=== PATIENT | male | born 1970 | race Caucasian/White ===

== ENCOUNTER → 2017-07-17 | Outpatient (CLI) | payer MEDICARE, OTHER ==
[2015-11-07 19:05] VITALS: BP 116/77
[~2017-07-17] MED LIST: ARIP5TAB13 PO; OXYC30TA PO; OXYC80TA16 PO; TAMS0.4C97 PO
[2017-07-17 15:49] LABS: ALBUMIN 3.8 g/dL (3.4-5.0); ALBUMIN/GLOBULIN RATIO 1.1 (1.0-1.7); CALCIUM 8.9 mg/dL (8.5-10.1); CREATININE 1.2 mg/dL (0.7-1.3); GFR 64.6; POTASSIUM 4.2 mmol/L (3.5-5.1); TOTAL BILIRUBIN 0.6 mg/dL (0.2-1.0); TOTAL PROTEIN 7.2 g/dL (6.4-8.2)
[2017-07-18 11:28] LABS: THYROID STIM HORMONE (TSH) 1.941 uIU/mL (0.358-3.740)
== END | disposition home or self-care (01) ==
LOC: LAB 15:02
PROVIDERS: ATTEND Family Medicine
DX: J44.9 Chronic obstructive pulmonary disease, unspecified (principal); E78.00 Pure hypercholesterolemia, unspecified; F33.1 Major depressive disorder, recurrent, moderate
CPT/HCPCS: 36415; 80053; 80061; 84443

== ENCOUNTER 2017-10-06 18:29 | Emergency (ER) | payer MEDICARE, OTHER ==
[~2017-10-06] VITALS: Ht 170.2 cm; Wt 72.6 kg
[2017-10-06 18:50] VITALS: BP 134/69
[2017-10-06] MEDS ORDERED: MORPHINE SULFATE 4 MG/ML DISP.SYRIN. IM ONE (19:30)
--- NOTE | 2017-10-06 19:30 | PHYS DOC ---
Past History Past Medical History: Anxiety, Depression, Kidney Stones, Other Additional Past Medical Histor: chronic pain Past Surgical History: Cholecystectomy, Other Smoking: Cigarettes, Greater than 1 pack/day Alcohol Use: None Drug Use: None Adult General Chief Complaint Chief Complaint: BACK PAIN OR INJURY [facility] HPI 47-year-old male patient chronic back and neck and shoulder pain on OxyContin 80 mg and OxyContin IR 30 mg for breakthrough pain since 1998 states he worked on his car 4 days ago and his pain getting worse but he ran out of his OxyContin IR and only had oxycodone 80 mg that does not helping for his breakthrough pain. Patient complaining of increasing pain in his left side of neck and left shoulder and back without neurovascular deficit, fever and chills , urinary and bowel incontinence, nausea and vomiting. Patient rated his pain 8/ 10 and states the pain getting worse with movement. Patient states he has appointment with his physician on October 12 and needs more pain medication. Review of Systems Review of Systems Constitutional: Denies fever or chills [] Eyes: Denies change in visual acuity, redness, or eye pain [] HENT: Denies nasal congestion or sore throat [] Respiratory: Denies cough or shortness of breath [] Cardiovascular: No additional information not addressed in HPI [] GI: Denies abdominal pain, nausea, vomiting, bloody stools or diarrhea [] : Denies dysuria or hematuria [] Musculoskeletal: Reports back pain and neck pain or joint pain Integument: Denies rash or skin lesions [] Neurologic: Denies headache, focal weakness or sensory changes [] Endocrine: Denies polyuria or polydipsia [] All other systems were reviewed and found to be within normal limits, except as documented in this note. Allergies Allergies Allergies Coded Allergies Type Severity Reaction Last Updated Verified No Known Drug Allergies 02/20/14 No Physical Exam Physical Exam Constitutional: Well nourished, mild distress, non-toxic appearance. [] HENT: Normocephalic, atraumatic, bilateral external ears normal, oropharynx moist, no oral exudates, nose normal. [] Eyes: PERRLA, EOMI, conjunctiva normal, no discharge. [] Neck: Normal range of motion, no tenderness, supple, no stridor. [] Cardiovascular:Heart rate regular rhythm, no murmur [] Lungs & Thorax: Bilateral breath sounds clear to auscultation [] Abdomen: Bowel sounds normal, soft, no tenderness, no masses, no pulsatile masses. [] Skin: Warm, dry, no erythema, no rash. [] Back: No tenderness, no CVA tenderness, no midline tenderness, limited range of motion secondary to pain. [] Extremities: No tenderness, no cyanosis, no clubbing, ROM intact, no edema. [] Neurologic: Alert and oriented X 3, normal motor function, normal sensory function, no focal deficits noted. [] Psychologic: Affect normal, judgement normal, mood normal. [] Current Patient Data Vital Signs Vital Signs Date Time Temp Pulse Resp B/P (MAP) Pulse Ox O2 Delivery O2 Flow Rate FiO2 10/06/17 18:50 97.9 102 18 97 Room Air EKG EKG [] Radiology/Procedures Radiology/Procedures [] Course & Med Decision Making Course & Med Decision Making Evaluation of patient in ER showed 47-year-old male patient with history of chronic back pain presented to ER for refill of pain medication. Patient informed that he needs to follow up with his primary care physician for refill of OxyContin. Prescription for muscle relaxant was given. Patient had 1 dose of morphine in ER and his pain improved. Dragon Disclaimer Dragon Disclaimer This electronic medical record was generated, in whole or in part, using a voice recognition dictation system. Departure Departure: Impression: Primary Impression: Acute exacerbation of chronic low back pain Additional Impressions: Tobacco abuse Tobacco abuse counseling Encounter for medication refill Disposition: HOME, SELF-CARE (At 1935) Condition: STABLE Referrals: DAYAMI DANIELS (PCP) Patient Instructions: Back Pain, Adult, Chronic Pain Management Additional Instructions: Follow-up with your physician for chronic back pain management and refill of pain medication Scripts Cyclobenzaprine Hcl (CYCLOBENZAPRINE HCL) 10 Mg Tablet 1 TAB PO TID, #30 TAB Prov: MARY ULLOA MD 10/06/17 Problem Qualifiers MARY ULLOA MD Oct 06, 2017 19:30
[2017-10-06] MEDS ORDERED: CYCL-331 PO (19:38)
== END 2017-10-06 19:59 | disposition home or self-care (01) ==
LOC: ER 18:29
DX: G89.29 Other chronic pain (principal); Z76.0 Encounter for issue of repeat prescription; M54.5 Low back pain; M54.2 Cervicalgia; M25.512 Pain in left shoulder; F17.210 Nicotine dependence, cigarettes, uncomplicated; Z71.6 Tobacco abuse counseling; Z87.442 Personal history of urinary calculi
CPT/HCPCS: 96372; 99283; J2270

== ENCOUNTER → 2018-06-29 | Outpatient (CLI) | payer MEDICARE, OTHER ==
[~2018-06-29] MED LIST changes: +CYCL-331 PO
[2018-06-29 14:37] LABS: BASO # 0.1 x10^3/uL (0.0-0.2); BASO % 1 % (0-3); EOS # 0.2 x10^3/uL (0.0-0.7); EOS % 2 % (0-3); HEMATOCRIT 50.8 % (39.0-53.0); HEMOGLOBIN 17.3 g/dL (13.0-17.5); LYMPH % 36 % (24-48); MEAN CORPUSCULAR HEMOGLOBIN 32 pg (25-35); MEAN CORPUSCULAR HGB CONC 34 g/dL (31-37); MEAN CORPUSCULAR VOLUME 95 fL (79-100); MONO # 0.6 x10^3/uL (0.0-1.1); MONO % 7 % (0-9); NEUT # 4.5 x10^3uL (1.8-7.7); NEUT % 54 % (31-73); PLATELET COUNT 248 x10^3/uL (140-400); RED BLOOD COUNT 5.33 x10^6/uL (4.30-5.70); RED CELL DISTRIBUTION WIDTH 14.5 % (11.5-14.5); WHITE BLOOD COUNT 8.4 x10^3/uL (4.0-11.0)
[2018-06-29 14:47] LABS: ALBUMIN 3.5 g/dL (3.4-5.0); ALBUMIN/GLOBULIN RATIO 0.9 (1.0-1.7); CREATININE 1.3 mg/dL (0.7-1.3); GFR 58.7; POTASSIUM 4.3 mmol/L (3.5-5.1); TOTAL BILIRUBIN 0.4 mg/dL (0.2-1.0); TOTAL PROTEIN 7.2 g/dL (6.4-8.2)
== END | disposition home or self-care (01) ==
LOC: LAB 13:51
PROVIDERS: ATTEND Family Medicine
DX: Z12.5 Encounter for screening for malignant neoplasm of prostate (principal); N40.1 Benign prostatic hyperplasia with lower urinary tract symptoms; E78.00 Pure hypercholesterolemia, unspecified; J44.9 Chronic obstructive pulmonary disease, unspecified
CPT/HCPCS: 36415; 80053; 80061; 85025; G0103; 84153

== ENCOUNTER → 2019-11-22 | Outpatient (CLI) | payer MEDICARE, MEDICAID ==
[2019-11-22 11:35] LABS: BASO # 0.1 x10^3/uL (0.0-0.2); BASO % 1 % (0-3); EOS # 0.2 x10^3/uL (0.0-0.7); EOS % 3 % (0-3); HEMOGLOBIN 17.6 g/dL (13.0-17.5); LYMPH # 2.3 x10^3/uL (1.0-4.8); LYMPH % 36 % (24-48); MEAN CORPUSCULAR HEMOGLOBIN 35 pg (25-35); MEAN CORPUSCULAR HGB CONC 34 g/dL (31-37); MEAN CORPUSCULAR VOLUME 104 fL (79-100); MONO # 0.4 x10^3/uL (0.0-1.1); MONO % 7 % (0-9); NEUT # 3.5 x10^3uL (1.8-7.7); NEUT % 53 % (31-73); PLATELET COUNT 202 x10^3/uL (140-400); RED BLOOD COUNT 4.99 x10^6/uL (4.30-5.70); RED CELL DISTRIBUTION WIDTH 14.7 % (11.5-14.5); WHITE BLOOD COUNT 6.5 x10^3/uL (4.0-11.0)
[2019-11-22 11:40] LABS: ALBUMIN 3.4 g/dL (3.4-5.0); ALK PHOS 122 U/L (46-116); ALT (SGPT) 10 U/L (16-63); ANION GAP 9 (6-14); BLOOD UREA NITROGEN 8 mg/dL (8-26); BUN/CREATININE RATIO 7 (6-20); CALCIUM 8.4 mg/dL (8.5-10.1); CARBON DIOXIDE 27 mmol/L (21-32); CHLORIDE 103 mmol/L (98-107); CREATININE 1.1 mg/dL (0.7-1.3); GFR 70.9; POTASSIUM 3.9 mmol/L (3.5-5.1); SODIUM 139 mmol/L (136-145); TOTAL BILIRUBIN 0.3 mg/dL (0.2-1.0); TOTAL PROTEIN 6.9 g/dL (6.4-8.2)
[2019-11-22 12:00] LABS: AST (SGOT) < 5 U/L (15-37)
[2019-11-22 12:02] LABS: GLUCOSE 121 mg/dL (70-99)
== END | disposition home or self-care (01) ==
LOC: LAB 10:44
PROVIDERS: ATTEND Family Medicine
DX: Z12.5 Encounter for screening for malignant neoplasm of prostate (principal); Z13.1 Encounter for screening for diabetes mellitus; J44.9 Chronic obstructive pulmonary disease, unspecified; G89.4 Chronic pain syndrome; F41.1 Generalized anxiety disorder; G47.01 Insomnia due to medical condition; F33.1 Major depressive disorder, recurrent, moderate; E78.00 Pure hypercholesterolemia, unspecified; M54.16 Radiculopathy, lumbar region; M75.00 Adhesive capsulitis of unspecified shoulder; M50.30 Other cervical disc degeneration, unspecified cervical region; Z68.28 Body mass index [BMI] 28.0-28.9, adult
CPT/HCPCS: 36415; 80053; 80061; 85025; G0103

== ENCOUNTER 2020-03-12 13:36 | Emergency (ER) | payer MEDICARE, MEDICAID ==
[~2020-03-12 13:36] MED LIST changes: -OXYC30TA PO; +OXYC30TA3 PO
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
== END 2020-03-12 14:21 | disposition home or self-care (01) ==
LOC: ER 13:36
DX: S29.011A Strain of muscle and tendon of front wall of thorax, initial encounter (principal); G89.29 Other chronic pain; F17.210 Nicotine dependence, cigarettes, uncomplicated; Z87.442 Personal history of urinary calculi; Y04.0XXA Assault by unarmed brawl or fight, initial encounter; Y93.89 Activity, other specified; Y92.89 Other specified places as the place of occurrence of the external cause; Y99.8 Other external cause status
CPT/HCPCS: 73030; 99283

== ENCOUNTER → 2020-04-05 | Outpatient (CLI) | payer MEDICARE, MEDICAID ==
[2020-04-06 00:06] LABS: HEMOGLOBIN A1C 5.6 % (4.8-5.6)
== END | disposition home or self-care (01) ==
LOC: LAB 15:39
PROVIDERS: ATTEND Family Medicine
DX: Z13.1 Encounter for screening for diabetes mellitus (principal); R73.01 Impaired fasting glucose; Z79.899 Other long term (current) drug therapy
CPT/HCPCS: 36415; 83036

== ENCOUNTER 2020-08-06 09:50 | Emergency (ER) | payer MEDICARE, MEDICAID ==
[~2020-08-06] VITALS: Ht 170.2 cm; Wt 72.5 kg
[2020-08-06] MEDS ORDERED: MIDAZOLAM HCL PF 5 MG/5 ML VIAL. IM ONE (10:00)
[2020-08-06] MEDS ORDERED: HALOPERIDOL LACT 5 MG/ML VIAL. IM ONE (10:00)
[2020-08-06] MEDS ORDERED: IV NORMAL SALINE 1,000ML 1,000 ML IV ONE ×2 (10:45→12:00)
[2020-08-06] MEDS ORDERED: IOHEXOL 300 MG/ML 75 ML VIAL. ONE (10:54)
--- NOTE | 2020-08-06 10:57 | PHYS DOC ---
Past History Past Medical History: Anxiety, Depression, Kidney Stones, Other Additional Past Medical Histor: chronic pain Past Surgical History: Cholecystectomy, Other Smoking: Cigarettes, Greater than 1 pack/day Alcohol Use: None Drug Use: None Adult General Chief Complaint Chief Complaint: SEIZURE HPI HPI Patient is a 50-year-old male who presents for potential seizure. Patient was at home and per family members who did not accompany patient to ER, they reported seizure-like activity which was self-limiting in nature. EMS was subsequently called and delivered patient to our ER for evaluation in a postictal state. It is unknown whether patient had any preceding symptoms. Patient hemodynamically stable but in confused postictal state and combative on arrival. Nothing else is known regarding patient's past medical history and/or medication list at this time Review of Systems Review of Systems Initial ROS unobtainable due to patient condition Current Medications Current Medications Current Medications Medications (Trade) Dose Ordered Sig/Mitzy Start Time Stop Time Status Last Admin Dose Admin Haloperidol Lactate (Haldol) 10 mg 1X ONCE 08/06/20 10:00 08/06/20 10:02 DC 08/06/20 10:07 10 MG Iohexol (Omnipaque 300 Mg/ml) 75 ml STK-MED ONCE 08/06/20 10:54 08/06/20 10:54 DC Midazolam HCl (Versed) 5 mg 1X ONCE 08/06/20 10:00 08/06/20 10:02 DC Sodium Chloride 1,000 ml @ 1,000 mls/hr 1X ONCE 08/06/20 10:45 08/06/20 11:44 08/06/20 10:39 1,000 MLS/HR Allergies Allergies Allergies Coded Allergies Type Severity Reaction Last Updated Verified No Known Drug Allergies 02/20/14 No Physical Exam Physical Exam Constitutional: Poor hygiene, unkept, obese, arrived in obvious distress in a confused what appears to be post ictal state HENT: Normocephalic, atraumatic, bilateral external ears normal, oropharynx moist, no oral exudates, nose normal. Eyes: PERRLA, EOMI, conjunctiva normal, no discharge. Neck: Normal range of motion, no tenderness, supple, no stridor. No meningeal signs, negative Brudzinski and Kernig Cardiovascular: Heart rate tachycardic, sinus rhythm, no murmurs rubs or gallops Lungs & Thorax: Bilateral breath sounds clear to auscultation Abdomen: Bowel sounds normal, soft, no tenderness, no masses, no pulsatile masses. Nonsurgical abdomen, no peritoneal signs Skin: Warm, dry, no erythema, no rash. Back: No tenderness, no CVA tenderness. Extremities: No tenderness, no cyanosis, no clubbing, ROM intact, no edema. Neurologic: Alert and oriented X 3, grossly normal motor & sensory function, no focal deficits noted. Psychologic: Unable to fully assess given patient's presenting state and subsequently leaving AGAINST MEDICAL ADVICE prior to complete examination Current Patient Data Vital Signs Vital Signs Date Time Temp Pulse Resp B/P (MAP) Pulse Ox O2 Delivery O2 Flow Rate FiO2 08/06/20 12:19 67 20 153/82 (105) 97 Room Air 08/06/20 09:55 98.3 Lab Results Laboratory Tests Test 08/06/20 10:18 08/06/20 10:30 08/06/20 13:00 Glucose (Fingerstick) 201 mg/dL (70-99) White Blood Count 8.2 x10^3/uL (4.0-11.0) Red Blood Count 5.32 x10^6/uL (4.30-5.70) Hemoglobin 18.2 g/dL (13.0-17.5) Hematocrit 55.1 % (39.0-53.0) Mean Corpuscular Volume 104 fL (79-100) Mean Corpuscular Hemoglobin 34 pg (25-35) Mean Corpuscular Hemoglobin Concent 33 g/dL (31-37) Red Cell Distribution Width 13.7 % (11.5-14.5) Platelet Count 190 x10^3/uL (140-400) Neutrophils (%) (Auto) 86 % (31-73) Lymphocytes (%) (Auto) 9 % (24-48) Monocytes (%) (Auto) 5 % (0-9) Eosinophils (%) (Auto) 0 % (0-3) Basophils (%) (Auto) 0 % (0-3) Neutrophils # (Auto) 7.0 x10^3uL (1.8-7.7) Lymphocytes # (Auto) 0.8 x10^3/uL (1.0-4.8) Monocytes # (Auto) 0.4 x10^3/uL (0.0-1.1) Eosinophils # (Auto) 0.0 x10^3/uL (0.0-0.7) Basophils # (Auto) 0.0 x10^3/uL (0.0-0.2) Sodium Level 135 mmol/L (136-145) Potassium Level 3.4 mmol/L (3.5-5.1) Chloride Level 97 mmol/L (98-107) Carbon Dioxide Level 21 mmol/L (21-32) Anion Gap 17 (6-14) Blood Urea Nitrogen 12 mg/dL (8-26) Creatinine 1.5 mg/dL (0.7-1.3) Estimated GFR (Cockcroft-Gault) 49.3 BUN/Creatinine Ratio 8 (6-20) Glucose Level 177 mg/dL (70-99) Lactic Acid Level 7.1 mmol/L (0.4-2.0) Calcium Level 9.5 mg/dL (8.5-10.1) Total Bilirubin 0.8 mg/dL (0.2-1.0) Aspartate Amino Transf (AST/SGOT) 24 U/L (15-37) Alanine Aminotransferase (ALT/SGPT) 24 U/L (16-63) Alkaline Phosphatase 123 U/L (46-116) Creatine Kinase 272 U/L (39-308) Troponin I Quantitative < 0.017 ng/mL (0-0.055) Total Protein 7.5 g/dL (6.4-8.2) Albumin 3.8 g/dL (3.4-5.0) Albumin/Globulin Ratio 1.0 (1.0-1.7) Urine Collection Type Unknown Urine Color Venita Urine Clarity Clear Urine pH 6.5 Urine Specific [place] 1.015 Urine Protein Trace (NEG-TRACE) Urine Glucose (UA) Neg mg/dL (NEG) Urine Ketones (Stick) 15 mg/dL (NEG) Urine Blood Mod (NEG) Urine Nitrite Neg (NEG) Urine Bilirubin Neg (NEG) Urine Urobilinogen Dipstick 2.0 mg/dL (0.2 mg/dL) Urine Leukocyte Esterase Neg (NEG) Urine RBC >40 /HPF (0-2) Urine WBC 1-4 /HPF (0-4) Urine Squamous Epithelial Cells Occ /LPF Urine Bacteria 0 /HPF (0-FEW) Urine Opiates Screen Pos (NEG) Urine Methadone Screen Neg (NEG) Urine Barbiturates Neg (NEG) Urine Phencyclidine Screen Neg (NEG) Urine Amphetamine/Methamphetamine Neg (NEG) Urine Benzodiazepines Screen Pos (NEG) Urine Cocaine Screen Neg (NEG) Urine Cannabinoids Screen Pos (NEG) Urine Ethyl Alcohol Neg (NEG) EKG EKG EKG ordered and interpreted by myself at 1047 hrs. as sinus rhythm at 73 bpm, unremarkable intervals, right axis deviation, incomplete right bundle branch block and septal anterior T wave inversions in leads V1, V2, V3, and V4. Radiology/Procedures Radiology/Procedures PROCEDURE: CHEST AP ONLY EXAM: CHEST 1 VIEW History: Altered mental status COMPARISON: 02/20/2014. TECHNIQUE: Single portable radiograph of the chest FINDINGS: Mild cardiomegaly. The lungs are clear bilaterally. The costophrenic sulci are clear and well demarcated. Small calcified granuloma left lung base. IMPRESSION: No radiographic evidence of an acute cardiopulmonary process. Electronically signed by: Jason Pope MD (08/06/2020 11:18 AM) [id number] PROCEDURE: CT HEAD WO CONTRAST PQRS Compliance Statement: One or more of the following individualized dose reduction techniques were utilized for this examination: 1. Automated exposure control 2. Adjustment of the mA and/or kV according to patient size 3. Use of iterative reconstruction technique CT head without contrast 08/06/2020 10:34 AM INDICATION: Seizure COMPARISON: None available TECHNIQUE: Multiple axial CT images of the head were obtained from skull base through the vertex without intravenous contrast. FINDINGS: Head: Ventricles, sulci and basal cisterns are within normal limits. There is no hydrocephalus. Schreiber-white matter differentiation is normal. There is no acute intracranial hemorrhage. There is no mass, mass effect or midline shift. Posterior fossa is normal in appearance. Visualized portions of the orbits are normal. Paranasal sinuses are well aerated. Mastoid air cells are well aerated. Scalp and calvaria are normal. IMPRESSION: No acute intracranial hemorrhage. Electronically signed by: Sarai Ventura MD (08/06/2020 11:05 AM) [id number] PROCEDURE: CT ABD PELV W/ IV CONTRST ONLY CT of the abdomen and pelvis with IV contrast. 08/06/2020 INDICATION: Abdominal pain. COMPARISON STUDY: CT of the abdomen and pelvis without contrast March 28, 2014 TECHNIQUE: Multidetector CT imaging of the abdomen and pelvis was obtained following the administration of IV contrast only. Oral contrast was not administered. FINDINGS: Visualized lung bases demonstrate no acute abnormality. Prior cholecystectomy noted. The liver, adrenal glands, spleen, and pancreas demonstrate no acute normality. Excretion of contrast from the kidneys is noted. This could obscure small nonobstructing stones. No evidence of hydronephrosis or ureteral stone is seen. There are small renal hypodensities, too small to characterize with attenuation characteristics suggestive of small cysts. There is no bowel obstruction. No evidence of acute inflammatory change involving visualized bowel is identified. Bladder is unremarkable. No free fluid or free air seen in the abdomen or pelvis. No acute osseous changes are identified. The appendix is mildly thickened measuring up to 8 mm in diameter. The appendiceal lumen appears to contain calcific densities likely multiple small appendicoliths. Similar findings noted on prior study. The appearance is chronic. No surrounding inflammatory changes identified. IMPRESSION 1. No evidence of acute intraluminal abnormality 2. No hydronephrosis, or evidence of acute obstructive uropathy CT DOSING PQRS STATEMENT: One or more of the following individualized dose reduction techniques were utilized for this examination: 1. Automated exposure control 2. Adjustment of the mA and/or kV according to patient size 3. Use of iterative reconstruction technique Electronically signed by: Matthew Arciniega MD (08/06/2020 11:37 AM) [id number] Heart Score HEART Score for Chest Pain: HEART Score for Chest Pain Response (Comments) Value History Slighlty/Non-Suspicious 0 ECG Normal 0 Age < 45 0 Risk Factors 1 or 2 Risk Factors 1 Troponin < Normal Limit 0 Total 1 Risk Factors: Risk Factors: DM, Current or recent (<one month) smoker, HTN, HLP, family history of CAD, obesity. Risk Scores: Risk Factors: DM, Current or recent (<one month) smoker, HTN, HLP, family history of CAD, obesity. Course & Med Decision Making Course & Med Decision Making Pertinent Labs and Imaging studies reviewed. (See chart for details) Patient initially arrived in aggressive post ictal state and decision was made to administer 10 mg IV of Haldol for acute aggression. This totally resolved patient's condition Patient was monitored, further history obtained from patient, better physical exam obtained, and subsequent diagnostic work-up obtained Nonetheless, before completion of entirety of work-up, patient voiced wanting to leave AGAINST MEDICAL ADVICE I have reviewed the relevant issues with the patient. They are aware of the suspected diagnosis suggested by limited medical exam regarding patient's suspect seizure-like activity The patient is AAOx3 at time of voicing wanting to leave, exhibits no alcohol or drug intoxication to a point that would impair ability to delineate a choice, and demonstrates all four delgado elements of capacity to make decisions regarding the medical care offered. - Patient able to Communicate their treatment choice - Patient able to Understand and recall information - Patient able to Appreciate and process probable outcomes of their condition - Patient able to Reason through communication their rationalization about their choice of care options, regardless of whether I as their provider agree with their rationale. Risks and Recommendations: The risks of refusing recommended care that were disclosed and acknowledged by the patient include loss of current lifestyle, permanent mental impairment, and . The recommended medical care being refused has been discussed with the patient and is to stay for continued monitoring, workup, and possible treatment. Discharge Care: The patient understands they are welcome to return to the hospital at any time to receive the recommended care or any other care at any time, regardless of their ability to pay for such care. Discharge instructions were provided to the patient. Dragon Disclaimer Dragon Disclaimer This electronic medical record was generated, in whole or in part, using a voice recognition dictation system. Departure Departure: Impression: Primary Impression: Left against medical advice Additional Impression: Seizure Disposition: 07 AMA/ELOPED/LWBS Condition: STABLE Referrals: DAYAMI DANIELS (PCP) Additional Instructions: You have been evaluated in the Emergency Department today. You are refusing further testing, imaging, and further admission and choosing to leave against medical advice. You were advised of your risks of leaving and understand that permanent harm, or even , can occur from failing to follow the recommendations of the physician. Please call your primary care physician immediately after ER departure to schedule outpatient follow-up JANNETTE for repeat evaluation since you left prior to complete evaluation in our ER today Return to the Emergency Department immediately if you experience worsening or uncontrolled pain, persistent fevers, recurrent vomiting, blood in vomit, blood in stool, dark tarry stool, chest pain, shortness of breath, or for any other concerning symptoms. Problem Qualifiers TAWNYA MANCIA DO Aug 06, 2020 10:57
[2020-08-06] MEDS ORDERED: IOHEXOL 300 MG/ML 75 ML VIAL. IV ONE (11:00)
[2020-08-06 11:06] LABS: BASO % 0 % (0-3); EOS % 0 % (0-3); HEMATOCRIT 55.1 % (39.0-53.0); HEMOGLOBIN 18.2 g/dL (13.0-17.5); LYMPH # 0.8 x10^3/uL (1.0-4.8); LYMPH % 9 % (24-48); MEAN CORPUSCULAR HEMOGLOBIN 34 pg (25-35); MEAN CORPUSCULAR HGB CONC 33 g/dL (31-37); MEAN CORPUSCULAR VOLUME 104 fL (79-100); MONO # 0.4 x10^3/uL (0.0-1.1); MONO % 5 % (0-9); NEUT % 86 % (31-73); PLATELET COUNT 190 x10^3/uL (140-400); RED BLOOD COUNT 5.32 x10^6/uL (4.30-5.70); RED CELL DISTRIBUTION WIDTH 13.7 % (11.5-14.5); WHITE BLOOD COUNT 8.2 x10^3/uL (4.0-11.0)
--- NOTE | 2020-08-06 11:08 | RAD ---
RS Compliance Statement: One or more of the following individualized dose reduction techniques were utilized for this examination: 1. Automated exposure control 2. Adjustment of the mA and/or kV according to patient size 3. Use of iterative reconstruction technique CT head without contrast 08/06/2020 10:34 AM INDICATION: Seizure COMPARISON: None available TECHNIQUE: Multiple axial CT images of the head were obtained from skull base through the vertex without intravenous contrast. FINDINGS: Head: Ventricles, sulci and basal cisterns are within normal limits. There is no hydrocephalus. Schreiber-white matter differentiation is normal. There is no acute intracranial hemorrhage. There is no mass, mass effect or midline shift. Posterior fossa is normal in appearance. Visualized portions of the orbits are normal. Paranasal sinuses are well aerated. Mastoid air cells are well aerated. Scalp and calvaria are normal. IMPRESSION: No acute intracranial hemorrhage. Electronically signed by: Sarai Ventura MD (08/06/2020 11:05 AM) [id number]
[2020-08-06 11:19] LABS: CALCIUM 9.5 mg/dL (8.5-10.1); CREATININE 1.5 mg/dL (0.7-1.3); GFR 49.3; POTASSIUM 3.4 mmol/L (3.5-5.1)
--- NOTE | 2020-08-06 11:21 | RAD ---
EXAM: CHEST 1 VIEW History: Altered mental status COMPARISON: 02/20/2014. TECHNIQUE: Single portable radiograph of the chest FINDINGS: Mild cardiomegaly. The lungs are clear bilaterally. The costophrenic sulci are clear and well demarcated. Small calcified granuloma left lung base. IMPRESSION: No radiographic evidence of an acute cardiopulmonary process. Electronically signed by: Jason Pope MD (08/06/2020 11:18 AM) [id number]
[2020-08-06 11:26] LABS: ALBUMIN 3.8 g/dL (3.4-5.0); TOTAL BILIRUBIN 0.8 mg/dL (0.2-1.0); TOTAL PROTEIN 7.5 g/dL (6.4-8.2)
--- NOTE | 2020-08-06 11:39 | RAD ---
CT of the abdomen and pelvis with IV contrast. 08/06/2020 INDICATION: Abdominal pain. COMPARISON STUDY: CT of the abdomen and pelvis without contrast March 28, 2014 TECHNIQUE: Multidetector CT imaging of the abdomen and pelvis was obtained following the administration of IV contrast only. Oral contrast was not administered. FINDINGS: Visualized lung bases demonstrate no acute abnormality. Prior cholecystectomy noted. The liver, adrenal glands, spleen, and pancreas demonstrate no acute normality. Excretion of contrast from the kidneys is noted. This could obscure small nonobstructing stones. No evidence of hydronephrosis or ureteral stone is seen. There are small renal hypodensities, too small to characterize with attenuation characteristics suggestive of small cysts. There is no bowel obstruction. No evidence of acute inflammatory change involving visualized bowel is identified. Bladder is unremarkable. No free fluid or free air seen in the abdomen or pelvis. No acute osseous changes are identified. The appendix is mildly thickened measuring up to 8 mm in diameter. The appendiceal lumen appears to contain calcific densities likely multiple small appendicoliths. Similar findings noted on prior study. The appearance is chronic. No surrounding inflammatory changes identified. IMPRESSION 1. No evidence of acute intraluminal abnormality 2. No hydronephrosis, or evidence of acute obstructive uropathy CT DOSING PQRS STATEMENT: One or more of the following individualized dose reduction techniques were utilized for this examination: 1. Automated exposure control 2. Adjustment of the mA and/or kV according to patient size 3. Use of iterative reconstruction technique Electronically signed by: Matthew Arciniega MD (08/06/2020 11:37 AM) [id number]
[2020-08-06 12:19] VITALS: BP 153/82
[2020-08-06 13:19] LABS: AMPHETAMINE/METHAMPHETAMINE NEG (NEG); BARBITURATES NEG (NEG); BENZODIAZEPINES POS (NEG); CANNABINOIDS POS (NEG); COCAINE NEG (NEG); METHADONE NEG (NEG); OPIATES POS (NEG); PHENCYCLIDINE NEG (NEG)
[2020-08-06 13:24] LABS: BILIRUBIN,URINE NEG (NEG); CLARITY,URINE CLEAR; COLOR,URINE AMBER; GLUCOSE,URINE NEG (NEG)
[2020-08-06 13:25] LABS: BACTERIA,URINE 0 /HPF (0-FEW); NITRITE,URINE NEG (NEG); RBC,URINE >40 /HPF (0-2); SQUAMOUS EPITHELIAL CELL,UR OCC /LPF
--- NOTE | 2020-08-07 06:38 | EKG ---
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
== END 2020-08-06 13:55 | disposition left against medical advice (07) ==
LOC: ER 09:50
DX: R56.9 Unspecified convulsions (principal); R41.0 Disorientation, unspecified; F41.9 Anxiety disorder, unspecified; F32.9 Major depressive disorder, single episode, unspecified; G89.29 Other chronic pain; F17.210 Nicotine dependence, cigarettes, uncomplicated; Z87.442 Personal history of urinary calculi
CPT/HCPCS: 36415; 70450; 71045; 74177; 80053; 80307; 81001; 82550; 82947; 83605; 84484; 85025; 87040; 93005; 96360; 96361; 96372; 99285; J1630; J7030; Q9967

== ENCOUNTER 2020-08-06 22:01 | Inpatient (IN) | payer MEDICARE, MEDICAID ==
[~2020-08-06] VITALS: Ht 170.2 cm; Wt 72.5 kg
--- NOTE | 2020-08-06 22:06 | PHYS DOC ---
Past History Past Medical History: Anxiety, Kidney Stones, Seizure, Other Additional Past Medical Histor: CHRONIC NECK PAIN Past Surgical History: Cholecystectomy, Other Additional Past Surgical Histo: UNKNOWN SURGICAL HX Past Surgical History This cervical laminectomy and fusion C5-C6 Smoking: Cigarettes, Greater than 1 pack/day Alcohol Use: None Drug Use: None General Adult HPI: HPI: " I don't know.. .. I don't know.. .. I ... Patient is a 50 year old male who presents with hx of tonic clonic like activiity. Seen this morning with similar presentation. Pt. left AMA. Pt. returns with periodic tonic clonic like activity. Patient initially refusing labs meds or evaluation. Eventually pt agreed to labs and work up. Pt. per hx has been on Xanax 4 times a day chronically for anxiety. Patient ran out of meds approximately 3 days ago and since that time has developed mental status changes which appear to be seizure-like episodes and absence / postictal phases. Patient was seen earlier this date but left AMA. Pt. normally follows with . Review of Systems: Review of Systems: Very poor historian due to frequent tonic-clonic episodes of periseizures with post ictal episodes Family History: Family History: Not currently available Current Medications: Current Meds: See nursing for home meds Allergies: Allergies: Allergies Coded Allergies Type Severity Reaction Last Updated Verified No Known Drug Allergies 02/20/14 No Physical Exam: PE: Constitutional: in acute distress, tonic-clonic muscle spasms which appear to be short seizures HENT: Normocephalic, atraumatic, bilateral external ears normal, oropharynx moist, no oral exudates, nose normal. [] Eyes: PERRLA, EOMI, conjunctiva injected, no discharge. During seizures he is eyes look downwards and fixed to the right Neck: Normal range of motion, no tenderness, supple, no stridor. Old surgical scar. Trachea midline Cardiovascular: Tachycardia during seizures, regular heart rate when not in a seizure episode Lungs & Thorax: Bilateral breath sounds equal at apex auscultation, some rhonchi on upper right Abdomen: Bowel sounds decreased, soft, no tenderness, no masses, no pulsatile masses. Old surgery scars. Skin: Warm, diaphoretic, no erythema, no rash. [] Back: No tenderness, no CVA tenderness. [] Extremities: No tenderness, no cyanosis, no clubbing, , no edema. [] Neurologic: Alert to name,, patient does cross-react and withdrawal with noxious stimuli, in between seizure episodes. DTRs +2 brachial and patella in between seizures. Psychologic: Affect anxious, judgement impaired, EKG: EKG: EKG shows a sinus rhythm at 72 bpm. Does have a right axis and a bundle branch block. Inverted T waves on the V 3, V 4 [] Radiology/Procedures: Radiology/Procedures: [][address] [address] IMAGING REPORT Signed PATIENT: EDGAR DE LOS SANTOS ACCOUNT: [id number] : 1970 LOCATION: ER AGE: 50 SEX: M EXAM STATUS: REG ER ORD. PHYSICIAN: MICHELLE BARAJAS MD REASON: dyspnea PROCEDURE: PORTABLE CHEST 1V Study: CR PORTABLE CHEST 1V Indication: Dyspnea. Comparison: 08/06/2020 Findings: Redemonstrated mild enlargement of the cardiomediastinal silhouette. No change in the configuration of the shivam. No confluent infiltrate, layering effusion or pneumothorax has developed in the interim. The aeration pattern of both lungs is no different. Left lower lung granuloma. Impression: No acute radiographic abnormality of the chest or relevant change from 08/06/2020. Electronically signed by: THELMA WOODWARD MD (08/07/2020 3:11 AM) [id number] DICTATED AND SIGNED BY: THELMA WOODWARD MD DATE: 08/07/201 CC: DAYAMI DANIELS; MICHELLE BARAJAS MD ~ Heart Score: HEART Score for Chest Pain: HEART Score for Chest Pain Response (Comments) Value History Moderately Suspicious 1 ECG Nonspecific Repolarizatio 1 Age >45 - < 65 1 Risk Factors 1 or 2 Risk Factors 1 Troponin < Normal Limit 0 Total 4 Risk Factors: Risk Factors: DM, Current or recent (<one month) smoker, HTN, HLP, family history of CAD, obesity. Risk Scores: Score 0 - 3: 2.5% MACE over next 6 weeks - Discharge Home Score 4 - 6: 20.3% MACE over next 6 weeks - Admit for Clinical Observation Score 7 - 10: 72.7% MACE over next 6 weeks - Early Invasive Strategies Course & Med Decision Making: Course & Med Decision Making Pertinent Labs and Imaging studies reviewed. (See chart for details) Suspect patient having benzodiazepine withdrawal seizures. Discussed presentation, testing and treatment plan with Dr. Vail. Will admit for Neurology consult and hydration. Will continue Ativan 1 mg qid and Keppra. For now and Neuroconsult. Cover for infection. At time of admission patient no longer having tonic-clonic seizures. Much more interactive. Still awaiting UA. Impression: 1. Mental Status Change 2. Recurrent Tonic clonic seizures with postictal episodes 3. Suspect benzodiazepine withdrawal 4. Leukocytosis 17,5 with 88 neutrophils 5. Elevated hemoglobin 18.8 6. Elevated lactic acid 4.5 7. Hypomagnesium 1.6 8. Elevated CK 1390 9. BNP 1023 10.Hx Chronic pain [] Dragon Disclaimer: Dragon Disclaimer: This electronic medical record was generated, in whole or in part, using a voice recognition dictation system. Departure Departure: Referrals: DAYAMI DANIELS (PCP) MICHELLE BARAJAS MD Aug 06, 2020 22:06
[2020-08-06] MEDS ORDERED: IV RINGERS SOLUTION,LACTATED 1,000 ML IV SCH (22:11)
[2020-08-07] MEDS ORDERED: IV NORMAL SALINE 100ML 100 ML ONE (00:07)
[2020-08-07] MEDS ORDERED: levETIRAcetam 500 MG/5 ML VIAL IV ONE (00:07)
[2020-08-07 00:41] LABS: BASO # 0.1 x10^3/uL (0.0-0.2); BASO % 1 % (0-3); EOS % 0 % (0-3); HEMATOCRIT 57.4 % (39.0-53.0); HEMOGLOBIN 18.8 g/dL (13.0-17.5); LYMPH # 2.3 x10^3/uL (1.0-4.8); LYMPH % 13 % (24-48); MEAN CORPUSCULAR HEMOGLOBIN 34 pg (25-35); MEAN CORPUSCULAR HGB CONC 33 g/dL (31-37); MEAN CORPUSCULAR VOLUME 104 fL (79-100); MONO # 1.4 x10^3/uL (0.0-1.1); MONO % 8 % (0-9); NEUT # 13.7 x10^3uL (1.8-7.7); NEUT % 78 % (31-73); PLATELET COUNT 221 x10^3/uL (140-400); RED BLOOD COUNT 5.54 x10^6/uL (4.30-5.70); RED CELL DISTRIBUTION WIDTH 13.7 % (11.5-14.5); WHITE BLOOD COUNT 17.5 x10^3/uL (4.0-11.0)
[2020-08-07 00:42] LABS: CALCIUM 9.8 mg/dL (8.5-10.1); CREATININE 1.2 mg/dL (0.7-1.3); GFR 63.8; POTASSIUM 4.4 mmol/L (3.5-5.1)
[2020-08-07 00:59] LABS: DIRECT BILIRUBIN 0.6 mg/dL (0.0-0.2); MAGNESIUM 1.6 mg/dL (1.8-2.4); TOTAL BILIRUBIN 1.4 mg/dL (0.2-1.0); TOTAL PROTEIN 8.2 g/dL (6.4-8.2)
[2020-08-07 01:18] LABS: % BANDS 2 % (0-9); % LYMPHS 5 % (24-48); % MONOS 5 % (0-10); % SEGS 88 % (35-66)
[2020-08-07 01:26] LABS: PLT ESTIMATE ADEQUATE (ADEQUATE)
--- NOTE | 2020-08-07 02:00 | EKG ---
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
--- NOTE | 2020-08-07 02:26 | RAD ---
STUDY: CT head and cervical spine without contrast INDICATION: Seizure-like activity. Syncope. COMPARISON: CT head 08/06/2020 TECHNIQUE: Axial CT imaging through the head and cervical spine without the use of intravenous contrast. Sagittal and coronal reformats were obtained. One or more of the following individualized dose reduction techniques were utilized for this examination: 1. Automated exposure control 2. Adjustment of the mA and/or kV according to patient size 3. Use of iterative reconstruction technique. FINDINGS: CT head: Motion degraded study. No acute intracranial hemorrhage is identified or CT evidence for an acute cortical infarction noting motion. No midline shift or hydrocephalus. A small area of left frontal subcortical white matter low-attenuation, image 13 series 2, was present previously. Nonspecific leftward gaze preference. No depressed calvarial fracture. CT cervical spine: Motion degraded study. Status post ACDF spanning C5-C6. The hardware is intact and well fixated. Fusion across the intervening disc space. Taking into consideration motion, no acute fracture identified. No traumatic malalignment. Asymmetry across the C1-C2 lateral mass articulation on the left is favored related to patient positioning. No severe osseous central canal stenosis. Potential mild stenosis at the operative level. No severe osseous narrowing of the neural foramina. No soft tissue sequela of trauma. IMPRESSION: CT head: 1. The study is limited due to motion. Taking this into consideration, no acute intracranial abnormality is seen by CT or significant change from 08/06/2020. A leftward gaze preference is noted but this is nonspecific. If there is ongoing concern, an MRI would be the most sensitive modality to detect any possible epileptogenic lesion. CT cervical spine: 1. Motion degraded study. Taking this into consideration, no acute fracture. 2. Intact surgical hardware at C5-C6. 3. Scattered degenerative changes without readily apparent severe osseous central canal or neural foraminal stenosis Electronically signed by: THELMA WOODWARD MD (08/07/2020 2:23 AM) [id number]
[2020-08-07] MEDS ORDERED: ONDANSETRON PF 4 MG/2 ML VIAL. IVP PRN (02:45)
[2020-08-07] MEDS ORDERED: ACETAMINOPHEN 325 MG TABLET PO PRN (02:45)
[2020-08-07] MEDS ORDERED: MVI, ADULT NO.4 WITH VIT K 10 ML VIAL IV ONE (02:58)
[2020-08-07] MEDS ORDERED: THIAMINE 200 MG/2 ML VIAL. IV ONE (02:58)
[2020-08-07] MEDS ORDERED: MAGNESIUM SULFATE 2GM 50 ML IV ONE (03:00)
[2020-08-07] MEDS ORDERED: MVI, ADULT NO.4 WITH VIT K 10 ML, THIAMINE INJ 100 MG in IV RINGERS SOLUTION,LACTATED 1... IV ONE (03:00)
[2020-08-07] MEDS ORDERED: IV RINGERS SOLUTION,LACTATED 1,000 ML IV ONE ×2 (03:00)
--- NOTE | 2020-08-07 03:14 | RAD ---
Study: CR PORTABLE CHEST 1V Indication: Dyspnea. Comparison: 08/06/2020 Findings: Redemonstrated mild enlargement of the cardiomediastinal silhouette. No change in the configuration of the shivam. No confluent infiltrate, layering effusion or pneumothorax has developed in the interim. The aeration pattern of both lungs is no different. Left lower lung granuloma. Impression: No acute radiographic abnormality of the chest or relevant change from 08/06/2020. Electronically signed by: THELMA WOODWARD MD (08/07/2020 3:11 AM) [id number]
[2020-08-07] MEDS ORDERED: SODIUM BICARB ADULT 8.4% 50 MEQ/50 ML DISP.SYRIN. IV ONE (03:30)
[2020-08-07 04:40] VITALS: BP 129/55
--- NOTE | 2020-08-07 04:58 | NUR ---
Pt admitted via EMS to 120 accompanied by nursing supervisor of guidance and testing for Tonic Clonic seizures. Pt is unable to respond to any admission questions at this time. Pt is responsive to painful stimuli only. Bed rails are padded per seizure precautions, will continue to monitor.
[2020-08-07] MEDS: IPRATRPIUM/ALBUTEROL 0.5/2.5MG 3 ML NEBU. NEB SCH ×2 (08:00→11:41)
[2020-08-07] MEDS ORDERED: LORazepam 1 MG TABLET PO SCH (09:00)
[2020-08-07 11:29] VITALS: BP 149/59
[2020-08-07 15:13] VITALS: BP 126/81
--- NOTE | 2020-08-07 16:16 | HP ---
ADMIT DATE: 08/07/2020 HISTORY OF PRESENT ILLNESS: The patient is a 50-year-old male patient who came to the Emergency Room for the second time. He presented with a history of tonic-clonic like activity. He was seen yesterday morning with similar presentation; however, he left against medical advice. He returned with periodic tonic-clonic like activity. He had initially refused all labs and medication evaluation. Eventually, the patient agreed to labs and workup. Per history, he has been on Xanax 4 times a day chronically for anxiety, although the ER physician stated that he ran out of his medication approximately 3 days ago and since that time has developed mental status changes, appeared to be seizure-like episodes and absence of postictal phases. When we spoke to his pharmacy apparently, he filled his medication on 07/09, and critically should still have some Xanax unless he has been overusing them. In any case, the patient was investigated in the Emergency Room and in fact, later on when he came to the hospital, I asked him when he woke up, he said that he did not bite his tongue, but he wet himself multiple times. Has had lab work done, as well as chemistry, showed that he had lactic acidosis and CK was high, probably all consistent with seizure activity. His white cell count was elevated at 17,500. He has also probably secondary erythrocytosis with hemoglobin of 18.8, hematocrit 57. His prothrombin time, INR and aPTT were normal. D-dimer was slightly elevated. Has had CT scan of the head and cervical spine as well as chest x-ray and was admitted and was started on Keppra, as well as lorazepam together with his inhalers. PAST MEDICAL HISTORY: Unremarkable except for severe anxiety and probably COPD, apparently has also stones. He also has cervical chronic neck pain. PAST SURGICAL HISTORY: Significant for cholecystectomy as well as the patient has ACDF spanning of C5-C6. The hardware is apparently intact and well-fixated. ALLERGIES: He has no known drug allergies. MEDICATIONS: He is currently on following medications: He is on Flomax 0.4 mg once a day, cyclobenzaprine 10 mg 3 times a day, oxycodone 30 mg every 6 hours, oxycodone extended release 80 mg twice a day. He takes actually 160 mg twice a day, aripiprazole for Abilify 5 mg daily and according to him, he is also on Xanax 1 mg 4 times a day. FAMILY HISTORY: Noncontributory. SOCIAL HISTORY: He lives alone. He continued to smoke cigarettes and also marijuana, but denied drinking alcohol or use any recreational drugs. 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 PHYSICAL EXAMINATION: GENERAL: When I saw him, on arrival to the Emergency Room, he was tachycardic, tachypneic. He was actually plethoric, but no jaundice or cyanosis. No lymphadenopathy, no thyromegaly. No jugular venous distention. No lower limb edema. VITAL SIGNS: His heart rate on arrival was 116, blood pressure was 118/67, temperature was 98, respiratory rate was 32 and oxygen saturation was 97%. HEAD, EYES, EARS, NOSE AND THROAT: Showed normocephalic, atraumatic. NECK: Supple. CARDIAC: Normal first and second heart sounds. No gallop or murmur. CHEST: Shows central trachea, equal bilateral chest expansion, air entry, vesicular breath sounds. No crepitation or rhonchi. ABDOMEN: Distended, soft, nontender. NEUROLOGIC: The patient was lethargic, does cross react and withdraw with noxious stimuli in between seizures episodes. Deep tendon reflexes 2+ brachial and patellar in between seizures. Has had an EKG done, which showed that he was in sinus rhythm at 72 beats per minute. Does have right axis and right bundle branch block. LABORATORY DATA: Showed a white cell count of 17,500, hemoglobin 18.8, hematocrit 57.4, MCV 104 and platelet count of 221,000 with normal manual differential. His chemistry showed a serum sodium 137, potassium 4.4, chloride 101, bicarbonate 22, anion gap of 14, BUN 13, creatinine 1.2, estimated GFR was 64 mL per minute. His glucose 110. Lactic acid was 4.5, calcium was 8.6, magnesium was 1.6. Total bilirubin is 1.4. AST and alkaline phosphatase slightly elevated. His creatinine kinase was 1390. Beta natriuretic peptide was 1022. Total protein 8.2, albumin was 4 and lipase 111. TSH was normal at 0.81. Has 3 sets of cardiac enzymes, showed troponin to be less than 0.017 and C-reactive protein was only 0.8 mg/dL, has had a chest x-ray, which showed no acute radiographic abnormality of the chest or relevant change from 08/06/2020. There are no acute intracranial abnormalities seen by CT scan or significant change from 08/06/2020. A leftward gaze preference is noted, but this is nonspecific. If there is ongoing concern, an MRI would be the most sensitive modality to detect any possible epileptogenic lesion. The CT scan of the cervical spine showed motion degraded study, taking this into consideration no acute fracture was detected. He has intact surgical hardware at C5-C6. Scattered degenerative changes without readily apparent severe osseous central canal or neural foraminal stenosis. The patient was treated with Ativan and was given loading dose of Keppra 1000 mg. He was given also thiamine, multivitamin, magnesium sulfate, and was started on IV antibiotic on a banana bag, was admitted for further evaluation and treatment. We did consult Dr. Hawthorne. The patient clearly has what seemed to be tonic-clonic seizures, although he did not bite his tongue he was incontinent of urine. His lactic acid was high as well as CK, probably altogether are consistent with tonic-clonic seizures. PETE WALLER MD DR: DERICK/eliza JOB#: [id number] / [id number]
--- NOTE | 2020-08-07 18:05 | NUR ---
END OF SHIFT-Pt was very somnolent early in shift, would not awaken to call of name, only to mildly painful stimuli. Became more wakeful throughout shift, having conversation et answering questions for Dr Vail during rounds. Denies ever having seizure activity in the past. Declined 1700 dose of lorazepam, "wanna stay awake for supper." Regular diet added.
[2020-08-07 18:20] VITALS: BP 156/60
[2020-08-08 00:25] VITALS: BP 154/74
--- NOTE | 2020-08-08 02:21 | CONS ---
DATE OF CONSULTATION: 08/07/2020 NEUROLOGICAL CONSULTATION REFERRING PHYSICIAN: Dr. Vail. REASON FOR CONSULTATION: New onset of seizure-like activities. HISTORY OF PRESENT ILLNESS: This is a 50-year-old right-handed male who was readmitted through Emergency Room after he presented with recurrent "seizure-like activity" described as intermittent stiffness of the upper and lower extremities associated with jerking movements, described as tonic-clonic movement and sometimes as involuntarily movements of the upper and lower extremities. The patient also described intermittent loss of consciousness during the spells. He denies bowel or bladder incontinence, tongue biting, headaches, chest pain, shortness of breath or palpitation, dysarthria or dysphagia. The patient most of the time did not recall the events and he stated he sometimes becomes confused and disoriented after the spells. He has been having anxiety disorders, for which he received alprazolam 2 mg 3 times daily. However, the patient ran out of alprazolam 3 days prior to the admission and apparently he started having seizure-like activities after he ran out of alprazolam. The patient stated he has been smoking cigarettes and marijuana, but he denies taking any illegal drug use. In the Emergency Room, he was investigated extensively and initial nonenhanced head CT scan revealed no acute intracranial process. He also has cervical CT scan, which consistent with degenerative disk disease at C5-C6. The patient also complains of localized neck pain. PAST MEDICAL HISTORY: Significant for anxiety disorders, COPD, history of congestive heart failure, chronic neck pain, kidney stones. PAST SURGICAL HISTORY: Positive for cholecystectomy and cervical spine fusion. FAMILY HISTORY: Noncontributory. SOCIAL HISTORY: The patient is single. He lives alone. He smokes cigarettes and marijuana. He denies alcohol drinking or illicit drug use. CURRENT HOME MEDICATIONS: Flomax 0.4 mg daily, cyclobenzaprine 10 mg 3 times daily, oxycodone 30 mg every 6 hours and oxycodone extended release 80 mg twice daily, Abilify 5 mg daily, Xanax 1-2 mg 4 times daily. ALLERGIES: No known drug allergies. REVIEW OF SYSTEMS: A 10-point review of systems was performed as mentioned above in history of present illness, otherwise unremarkable consistent with chronic anxiety disorders and possible history of bipolar disorder. PHYSICAL EXAMINATION: GENERAL: Well-developed, well-nourished male, not in acute distress. He weighs 72.5 kilos. VITAL SIGNS: Blood pressure 126/81, respiratory rate 20, pulse is 62 and regular, oxygen saturation 99%, and temperature is 97.8. HEENT: Normocephalic, atraumatic, otherwise unremarkable. NECK: Supple. Negative for carotid bruit, lymphadenopathy or thyromegaly. LUNGS: Clear to A and P. CARDIOVASCULAR: Regular rate and rhythm, normal S1, S2. There is no S3, S4 or murmurs. ABDOMEN: Soft. Bowel sounds positive. EXTREMITIES: Negative for cyanosis, clubbing or edema. NEUROLOGICAL EXAM: Mental Status: The patient is alert and oriented x 2. Speech is fluent. There is no language dysfunction. Memory, judgment, and abstracting thinking are fair. The patient denies hallucination or delusion. CRANIAL NERVES: Visual guido are full. The pupils are reactive to light and accommodation. The extraocular movements are intact. There is no nystagmus. There are no facial motor or sensory deficits. Hearing is intact bilaterally. The palate is elevated symmetrically. Sternocleidomastoid muscles are powerful bilaterally. The patient shrugs his shoulders symmetrically, protrudes his tongue in the midline without fasciculation or atrophy. MOTOR: No focal muscle bulk was seen. The tone is normal. The strength is 4/5 throughout. SENSORY: Revealed normal pinprick, light touch, vibratory and position senses. Deep tendon reflexes were symmetric and active without pathology responses. Gait: Not tested. LABORATORY DATA: CBC revealed white blood cells of 17.5 thousand, hemoglobin 18.8, hematocrit 57.4, platelet count is 221,000, high neutrophils at 13.7. Chemistry: Sodium 137, potassium 4.4, chloride 101, CO2 of 22, BUN 13, creatinine 1.2, glucose 110, A1c is 5.6, calcium 9.8, total bilirubin is high at 1.4 and direct bilirubin is high at 0.6. AST is elevated at 49, creatinine kinase is high at 1390, alkaline phosphatase is also high at 121. Cardiac enzymes are normal. Troponin level is 0.021 and NPB is 1022. Previous lipid profile revealed high triglyceride and normal LDL with low HDL. Urine drug screen is positive for marijuana and opiates. Urinalysis revealed microscopic hematuria. DIAGNOSTIC DATA: Chest x-ray revealed no acute cardiopulmonary process and nonenhanced head CT scan revealed no acute intracranial process and CT of the cervical spine revealed fusion at C5-C6 and multilevel degenerative disk disease. IMPRESSION: 1. Intermittent seizure-like activities, described as an involuntarily movement and sometimes tonic-clonic seizure-like activities began 2-3 days prior to this admission after he ran out of alprazolam-Xanax. The etiology of his activities probably due to Xanax withdrawal seizure; however, intermittent epileptic seizure could not be ruled out at this time. 2. Multiple medical problems include history of congestive heart failure, anxiety disorders, possible depression versus bipolar disorder, chronic neck pain and status post cervical spine fusion. RECOMMENDATIONS: 1. Electroencephalogram to rule out epileptic versus nonepileptic seizure. 2. Avoid excessive opiate use and marijuana use. 3. Repeat CBC and complete metabolic panel. 4. If EEG is not available, we will arrange to schedule him to have EEG on outpatient basis. M Al GRANADOS MD DR: LILY/eliza JOB#: [id number] / [id number]
--- NOTE | 2020-08-08 04:19 | NUR ---
Pt laying in bed when approached for assessment. Pt refuses to talk when questions of POC are discussed. Pt allows assessment to be completed w/o much difficulty. Pt appears to be agitated when approached for cares. Pt has rested comfortably w/o any complaints unless bothered w/ ADL's. Call is in reach and will continue to monitor.
[2020-08-08 06:07] VITALS: BP 162/74
[2020-08-08 07:08] LABS: BASO # 0.1 x10^3/uL (0.0-0.2); BASO % 1 % (0-3); EOS % 0 % (0-3); HEMOGLOBIN 18.9 g/dL (13.0-17.5); LYMPH # 1.7 x10^3/uL (1.0-4.8); LYMPH % 15 % (24-48); MEAN CORPUSCULAR HEMOGLOBIN 34 pg (25-35); MEAN CORPUSCULAR HGB CONC 33 g/dL (31-37); MEAN CORPUSCULAR VOLUME 103 fL (79-100); MONO # 0.8 x10^3/uL (0.0-1.1); MONO % 7 % (0-9); NEUT # 8.9 x10^3uL (1.8-7.7); NEUT % 77 % (31-73); PLATELET COUNT 147 x10^3/uL (140-400); RED BLOOD COUNT 5.53 x10^6/uL (4.30-5.70); RED CELL DISTRIBUTION WIDTH 13.7 % (11.5-14.5); WHITE BLOOD COUNT 11.6 x10^3/uL (4.0-11.0)
[2020-08-08 07:32] LABS: ALBUMIN 3.4 g/dL (3.4-5.0); ALBUMIN/GLOBULIN RATIO 0.9 (1.0-1.7); CALCIUM 8.7 mg/dL (8.5-10.1); CREATININE 0.9 mg/dL (0.7-1.3)
[2020-08-08 07:40] LABS: POTASSIUM 2.7 mmol/L (3.5-5.1)
--- NOTE | 2020-08-08 07:56 | NUR ---
PHONE CALL RECEIVED FROM LAB WITH CRITICAL RESULT OF K 2.7. DR. HIGH NOTIFIED.
[2020-08-08] MEDS ORDERED: POTASSIUM CHLORIDE 20 MEQ TABLET.ER. PO ONE (08:30)
--- NOTE | 2020-08-08 09:02 | DS ---
DATE OF DISCHARGE: 08/08/2020 ATTENDING PHYSICIAN: Dr. Vail. FINAL DISCHARGE DIAGNOSES: 1. Seizure disorder from benzodiazepine withdrawal. 2. Polysubstance abuse. 3. Tonic-clonic seizures. 4. Degenerative arthritis with previous surgeries, cervical spine. HISTORY AND PHYSICAL: This 50-year-old gentleman was admitted with tonic-clonic seizure, most likely due to benzodiazepine withdrawal as he was given Xanax. Unfortunately, he has been using excess amount. He lives in [facility] in [place], [place]. He has also left the hospital AMA and has been difficult in allowing further evaluation. He has also underlying severe anxiety and COPD. PHYSICAL EXAMINATION: Please see the dictated note. PERTINENT LABORATORY AND X-RAY STUDIES: Admission hemoglobin was 18.8 g/dL, white count of 11,600. Chemistry panel: Potassium is 2.7 mEq. This will be replaced and treated accordingly. Transaminases slightly elevated with AST of 349. Bilirubin is 1.0, creatinine is 0.9 mg percent. COURSE IN THE HOSPITAL: The patient was admitted. He was loaded with intravenous Keppra. Diet was advanced. He felt well. By the second hospital day, he was alert and oriented. He had no further seizures. He was wanting to go home. Blood pressure was 154/70, pulse 50 and regular, but he was asleep. He was afebrile and oxygen saturation 94%. We gave him a dose of potassium prior to discharge. At this time, he is discharged home with Keppra 1000 mg b.i.d., hopefully for the next month and potassium K-Dur 20 mEq 1 daily. I suggested a followup visit and recheck potassium in a week. Whether or not he will take his medications, remains the same. Scripts were written. He was discharged then from our hospital in stable condition with explicit instructions and followup care. CLIVE HIGH MD DR: OVI/eliza JOB#: [id number] / [id number]
[2020-08-08] MEDS ORDERED: LEVE100020 PO (09:53)
[2020-08-08] MEDS ORDERED: POTA20TA4 PO (09:55)
--- NOTE | 2020-08-08 10:40 | NUR ---
PATIENT IS DISCHARGED HOME. DISCHARGED INSTRUCTION AND PRESCRIBED MEDICATIONS OF POTASSIUM AND KEPPRA REVIEWED, PATIENT VERBALIZED UNDERSTANDING. PATIENT INSTRUCTED TO MAKE AN APPOINTMENT WITH NEUROLOGIST, PHONE NUMBER PROVIDED. 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 PATIENT IS TAKEN HOME BY FAMILY VIA PERSONAL VEHICLE.
[2020-08-08] MEDS ORDERED: LACTOBACILLUS RHAMNOSUS GG 1 CAPSULE. PO SCH (21:00)
--- NOTE | 2020-08-08 21:23 | PN ---
DATE: SUBJECTIVE: The patient denies any new medical or neurological complaints. He denies headache, chest pain, shortness of breath or palpitation, dysarthria or dysphagia. He denies any recurrent seizure-like activities since admission. OBJECTIVE: GENERAL: Well-developed, well-nourished male, not in acute distress. He appeared to be very anxious. VITAL SIGNS: Blood pressure 162/74, respiratory rate 20, pulse is 51, temperature 98.7, oxygen saturation 93% on room air. HEENT: Normocephalic, atraumatic, otherwise unremarkable. NECK: Supple. Negative for carotid bruit, lymphadenopathy or thyromegaly. LUNGS: Clear to A and P. CARDIOVASCULAR: Regular rate and rhythm, normal S1, S2. There is no S3, S4 or murmur. ABDOMEN: Soft. Bowel sounds positive. EXTREMITIES: Negative for cyanosis, clubbing or edema. NEUROLOGICAL EXAM: Mental Status: The patient is alert and oriented x 3. The speech is fluent. There is no language dysfunction. Memory, judgment, and abstracting thinking are fair. The patient denies hallucination or delusion. Cranial nerves are intact. Motor examination revealed no focal muscle bulk was seen. The tone is normal. The strength is 4/5 throughout. Sensory examination revealed normal pinprick, light touch, vibratory and position senses. Deep tendon reflexes were symmetric and active without pathologic responses. Gait: The stance is steady. LABORATORY DATA: CBC revealed white blood cells of 11.6 thousand, hemoglobin 18.9, hematocrit 57, platelet count 147,000. Chemistry revealed sodium of 135, potassium is 2.7, chloride 99, BUN 12, creatinine 0.9, glucose 77, calcium is 8.7. AST and ALT are elevated. IMPRESSION: 1. Seizure-like activities as described above, etiology uncertain, rule out epileptic versus nonepileptic. However, Xanax withdrawal, alprazolam withdrawal may have also contributed to the current symptoms. 2. Multiple medical problems include anxiety and possible depression, chronic neck pain, status post cervical spine fusion. 3. Critical hypokalemia. RECOMMENDATIONS: 1. Potassium supplement. 2. We will arrange for electroencephalogram on an outpatient basis. 3. Continue with current management initiated by Dr. Vail/Dr. Tillman. M Al GRANADOS MD DR: LILY/eliza JOB#: [id number] / [id number]
== END 2020-08-08 10:35 | disposition home or self-care (01) | DRG 101 ==
LOC: ER 22:01 → UNDOADMIN 08-07 03:23 → 1 SOUTH 08-07 03:23
PROVIDERS: ADMIT Internal Medicine; ATTEND Internal Medicine
DX: G40.509 Epileptic seizures related to external causes, not intractable, without status epilepticus (principal); E87.2 Acidosis; D72.829 Elevated white blood cell count, unspecified; E83.42 Hypomagnesemia; E87.6 Hypokalemia; F12.90 Cannabis use, unspecified, uncomplicated; F17.210 Nicotine dependence, cigarettes, uncomplicated; F41.9 Anxiety disorder, unspecified; I50.9 Heart failure, unspecified; J44.9 Chronic obstructive pulmonary disease, unspecified; M19.90 Unspecified osteoarthritis, unspecified site; M50.322 Other cervical disc degeneration at C5-C6 level; G89.29 Other chronic pain; F19.10 Other psychoactive substance abuse, uncomplicated; T42.4X5A Adverse effect of benzodiazepines, initial encounter; Z79.899 Other long term (current) drug therapy; Z87.442 Personal history of urinary calculi; Z98.1 Arthrodesis status; Z90.49 Acquired absence of other specified parts of digestive tract; Y92.89 Other specified places as the place of occurrence of the external cause
CPT/HCPCS: 36415; 70450; 71045; 72125; 80048; 80053; 80076; 82140; 82550; 83605; 83690; 83735; 83880; 84443; 84484; 85007; 85025; 85379; 85610; 85730; 86140; 87040; 93005; 96361; 96365; 96367; 96375; J0696; J1953; J2060; J3475; J7120; 99285-25

== ENCOUNTER 2020-08-10 21:14 | Emergency (ER) | payer MEDICARE, MEDICAID ==
[~2020-08-10] VITALS: Ht 170.2 cm; Wt 72.5 kg
[~2020-08-10 21:14] MED LIST changes: +LEVE100020 PO; +POTA20TA4 PO
[2020-08-10 21:25] VITALS: BP 119/80
[2020-08-10] MEDS ORDERED: IV NORMAL SALINE 1,000ML 1,000 ML IV ONE (21:45)
[2020-08-10 21:53] LABS: BASO % 0 % (0-3); EOS % 0 % (0-3); HEMATOCRIT 55.2 % (39.0-53.0); HEMOGLOBIN 18.1 g/dL (13.0-17.5); LYMPH % 14 % (24-48); MEAN CORPUSCULAR HEMOGLOBIN 34 pg (25-35); MEAN CORPUSCULAR HGB CONC 33 g/dL (31-37); MEAN CORPUSCULAR VOLUME 102 fL (79-100); MONO % 7 % (0-9); NEUT # 11.5 x10^3uL (1.8-7.7); NEUT % 79 % (31-73); PLATELET COUNT 165 x10^3/uL (140-400); RED CELL DISTRIBUTION WIDTH 13.7 % (11.5-14.5); WHITE BLOOD COUNT 14.6 x10^3/uL (4.0-11.0)
--- NOTE | 2020-08-10 22:05 | PHYS DOC ---
Past History Past Medical History: Anxiety, Kidney Stones, Seizure, Other Additional Past Medical Histor: CHRONIC NECK PAIN Past Surgical History: Cholecystectomy, Other Additional Past Surgical Histo: UNKNOWN SURGICAL HX Smoking: Cigarettes, Greater than 1 pack/day Alcohol Use: None Drug Use: None General Adult EDM: Chief Complaint: SEIZURE HPI: HPI: 50-year-old male presents via EMS for concern of seizure. He was witnessed to be having tonic-clonic like activity and EMS was called. When they arrived he was combative and flailing around. They gave him 5 of Versed and he continued to have jerking motions that subsided on arrival to the emergency room. Patient was recently seen in this hospital twice with similar symptoms. He is unable to give me any history because he is asleep. Review of Systems: Review of Systems: Unable to assess due to being asleep. Current Medications: Current Meds: Current Medications Medications (Trade) Dose Ordered Sig/Mitzy Start Time Stop Time Status Last Admin Dose Admin Sodium Chloride 1,000 ml @ 1,000 mls/hr 1X ONCE 08/10/20 21:45 08/10/20 22:44 08/10/20 21:45 1,000 MLS/HR Allergies: Allergies: Allergies Coded Allergies Type Severity Reaction Last Updated Verified No Known Drug Allergies 08/06/20 No Physical Exam: PE: Constitutional: Well developed, well nourished, no acute distress, non-toxic appearance. [] HENT: Normocephalic, atraumatic, bilateral external ears normal, oropharynx moist, no oral exudates, nose normal. [] Eyes: PERRLA, EOMI, conjunctiva normal, no discharge. [] Neck: Normal range of motion, no tenderness, supple, no stridor. [] Cardiovascular:Heart rate regular rhythm, no murmur [] Lungs & Thorax: Bilateral breath sounds clear to auscultation [] Abdomen: Bowel sounds normal, soft, no tenderness, no masses, no pulsatile masses. [] Skin: Warm, dry, no erythema, no rash. [] Back: No tenderness, no CVA tenderness. [] Extremities: No tenderness, no cyanosis, no clubbing, ROM intact, no edema. [] Neurologic: sleeping, normal motor function, normal sensory function, no focal deficits noted. [] Psychologic: Unable to assess. [] Current Patient Data: Labs: Laboratory Tests Test 08/10/20 21:31 White Blood Count 14.6 x10^3/uL (4.0-11.0) H Red Blood Count 5.40 x10^6/uL (4.30-5.70) Hemoglobin 18.1 g/dL (13.0-17.5) H Hematocrit 55.2 % (39.0-53.0) H Mean Corpuscular Volume 102 fL (79-100) H Mean Corpuscular Hemoglobin 34 pg (25-35) Mean Corpuscular Hemoglobin Concent 33 g/dL (31-37) Red Cell Distribution Width 13.7 % (11.5-14.5) Platelet Count 165 x10^3/uL (140-400) Neutrophils (%) (Auto) 79 % (31-73) H Lymphocytes (%) (Auto) 14 % (24-48) L Monocytes (%) (Auto) 7 % (0-9) Eosinophils (%) (Auto) 0 % (0-3) Basophils (%) (Auto) 0 % (0-3) Neutrophils # (Auto) 11.5 x10^3uL (1.8-7.7) H Lymphocytes # (Auto) 2.0 x10^3/uL (1.0-4.8) Monocytes # (Auto) 1.0 x10^3/uL (0.0-1.1) Eosinophils # (Auto) 0.0 x10^3/uL (0.0-0.7) Basophils # (Auto) 0.0 x10^3/uL (0.0-0.2) Vital Signs: Vital Signs Date Time Temp Pulse Resp B/P (MAP) Pulse Ox O2 Delivery O2 Flow Rate FiO2 08/10/20 21:25 98.7 115 14 119/80 (93) 95 Room Air EKG: EKG: [] Radiology/Procedures: Radiology/Procedures: [] Impressions: CT scan of the head without contrast 08/10/2020 Clinical History: Seizure. Technique: Unenhanced, contiguous, 5 mm axial sections were obtained through the head. One or more of the following individualized dose reduction techniques were utilized for this study: 1. Automated exposure control. 2. Adjustment of the mA and/or kV according to patient size. 3. Use of iterative reconstruction technique. Findings: Comparison study is dated 08/07/2020 . The ventricles and sulci are within normal limits in size and configuration. No acute parenchymal abnormality is seen. No extra-axial fluid collection is noted. No skull fracture is seen. Impression: No acute intracranial abnormality is seen. Electronically signed by: Simone Pastor MD (08/10/2020 10:31 PM) [id number] DICTATED AND SIGNED BY: SIMONE PASTOR MD DATE: 08/10/20 2231 CC: DAYAMI DANIELS; SHYANNE GUPTA DO ~ Heart Score: Risk Factors: Risk Factors: DM, Current or recent (<one month) smoker, HTN, HLP, family history of CAD, obesity. Risk Scores: Score 0 - 3: 2.5% MACE over next 6 weeks - Discharge Home Score 4 - 6: 20.3% MACE over next 6 weeks - Admit for Clinical Observation Score 7 - 10: 72.7% MACE over next 6 weeks - Early Invasive Strategies Course & Med Decision Making: Course & Med Decision Making Pertinent Labs and Imaging studies reviewed. (See chart for details) The patient has a potassium of 2.7. We will start him 40 mEq and a liter of normal saline. We have also given him 40 mEq p.o. The patient has some other abnormal labs. See labs for more details. He appears clinically dry. The patient's CT scan is negative for acute findings. The patient has been recently admitted and worked up. He is choosing not to follow the advice of his physicians. He has been using very well could be another[] withdrawal seizure. He has replaced his potassium. Patient does not want to stay in the hospital. Encouraged him to start potassium supplementation. He is stable for discharge at this time. Dragon Disclaimer: Jj Disclaimer: This electronic medical record was generated, in whole or in part, using a voice recognition dictation system. Departure Departure: Impression: Primary Impression: Hypokalemia Additional Impression: Drug withdrawal seizure Qualified Codes: F19.230 - Other psychoactive substance dependence with withdrawal, uncomplicated; R56.9 - Unspecified convulsions Disposition: 01 DC HOME SELF CARE/HOMELESS Condition: STABLE Referrals: DAYAMI DANIELS (PCP) Patient Instructions: Hypokalemia Additional Instructions: You need to start taking at least 20-40 mEq of potassium daily. If your potassium drops too much, it could cause cardiac arrhythmia or even . You should follow-up with your primary care physician to have your potassium checked on Thursday. SHYANNE GUPTA DO Aug 10, 2020 22:05
[2020-08-10 22:06] LABS: ALBUMIN 3.8 g/dL (3.4-5.0); CALCIUM 9.9 mg/dL (8.5-10.1); CREATININE 1.5 mg/dL (0.7-1.3); GFR 49.3; TOTAL BILIRUBIN 1.3 mg/dL (0.2-1.0); TOTAL PROTEIN 7.5 g/dL (6.4-8.2)
[2020-08-10 22:07] LABS: POTASSIUM 2.7 mmol/L (3.5-5.1)
[2020-08-10] MEDS ORDERED: POTASSIUM CL 40MEQ IN 0.9%NACL 1,000 ML IV ONE (22:30)
--- NOTE | 2020-08-10 22:34 | RAD ---
CT scan of the head without contrast 08/10/2020 Clinical History: Seizure. Technique: Unenhanced, contiguous, 5 mm axial sections were obtained through the head. One or more of the following individualized dose reduction techniques were utilized for this study: 1. Automated exposure control. 2. Adjustment of the mA and/or kV according to patient size. 3. Use of iterative reconstruction technique. Findings: Comparison study is dated 08/07/2020 . The ventricles and sulci are within normal limits in size and configuration. No acute parenchymal abnormality is seen. No extra-axial fluid collection is noted. No skull fracture is seen. Impression: No acute intracranial abnormality is seen. Electronically signed by: Simone Santizo MD (08/10/2020 10:31 PM) [id number]
[2020-08-10] MEDS ORDERED: POTASSIUM CHLORIDE 20 MEQ TABLET.ER. PO ONE (23:00)
[2020-08-11] MEDS ORDERED: IV NORMAL SALINE 1,000ML 1,000 ML IV ONE
[2020-08-11 01:08] LABS: BARBITURATES NEG (NEG); BENZODIAZEPINES POS (NEG); CANNABINOIDS POS (NEG); COCAINE NEG (NEG); METHADONE NEG (NEG); OPIATES POS (NEG); PHENCYCLIDINE NEG (NEG)
[2020-08-11 01:16] LABS: AMPHETAMINE/METHAMPHETAMINE NEG (NEG)
[2020-08-11 01:21] LABS: CLARITY,URINE HAZY; COLOR,URINE AMBER
[2020-08-11 01:22] LABS: BACTERIA,URINE FEW /HPF (0-FEW); BILIRUBIN,URINE NEG (NEG); GLUCOSE,URINE NEG (NEG); NITRITE,URINE NEG (NEG); RBC,URINE 20-40 /HPF (0-2); SQUAMOUS EPITHELIAL CELL,UR FEW /LPF; WBC,URINE 0 /HPF (0-4)
[2020-08-13] MEDS ORDERED: LORA-254 PO (07:24)
== END 2020-08-11 01:15 | disposition home or self-care (01) ==
LOC: ER 21:14
DX: E87.6 Hypokalemia (principal); F19.239 Other psychoactive substance dependence with withdrawal, unspecified; R56.9 Unspecified convulsions; F41.9 Anxiety disorder, unspecified; G89.29 Other chronic pain; F17.210 Nicotine dependence, cigarettes, uncomplicated; Z87.442 Personal history of urinary calculi; Z90.49 Acquired absence of other specified parts of digestive tract
CPT/HCPCS: 36415; 70450; 80053; 80307; 81001; 83735; 85025; 96361; 96365; 96366; 99284; J7030

== ENCOUNTER → 2020-08-13 | Emergency (ER) | payer MEDICARE, MEDICAID ==
[~2020-08-13] VITALS: Ht 170.2 cm; Wt 72.5 kg
[~2020-08-13] MED LIST changes: +ATOR20TA58 PO; +KETOROLAC 15 MG/ML VIAL. IVP ONE; +LORA-254 PO; +NABU750T7 PO; +OXYC30TA21 PO; +SERT100T PO; +TRAZ-125 PO
--- NOTE | 2020-08-13 06:18 | PHYS DOC ---
Past History Past Medical History: Anxiety, Kidney Stones, Seizure, Other Additional Past Medical Histor: CHRONIC NECK PAIN Past Surgical History: Cholecystectomy, Other Additional Past Surgical Histo: UNKNOWN SURGICAL HX Smoking: Cigarettes, Greater than 1 pack/day Alcohol Use: None Drug Use: None General Adult EDM: Chief Complaint: SEIZURE HPI: HPI: Patient is a chief complaint of generalized tonic-clonic seizure. Patient received 5 mg of Versed prior to arrival and is still having some tonic-clonic activity upon arrival. History physical review of systems are all limited due to altered mental status. Patient has been here recently multiple times for similar type behavior. Review of Systems: Review of Systems: Review of systems is unobtainable due to altered mental status Current Medications: Current Meds: Current Medications Medications (Trade) Dose Ordered Sig/Mitzy Start Time Stop Time Status Last Admin Dose Admin Lorazepam (Ativan Inj) 4 mg 1X ONCE 08/13/20 06:00 08/13/20 06:01 UNV Allergies: Allergies: Allergies Coded Allergies Type Severity Reaction Last Updated Verified No Known Drug Allergies 08/06/20 No Physical Exam: PE: Constitutional: Well developed, well nourished, mild distress HENT: Normocephalic, atraumatic, bilateral external ears normal, nose normal. [] Eyes: PERRLA, EOMI, conjunctiva normal, no discharge. [] Neck: Normal range of motion, no tenderness, supple, no stridor. [] Cardiovascular:Heart rate regular rhythm, no murmur [] Lungs & Thorax: Bilateral breath sounds clear, no respiratory distress Abdomen: soft, no tenderness, no masses, no pulsatile masses. [] Skin: Warm, dry, no erythema, Back: No tenderness, no CVA tenderness. [] Extremities: No tenderness, no cyanosis, no clubbing, ROM intact, no edema. [] Neurologic: Views, currently nonverbal, moves all extremities with generalized clonic activity Psychologic unable to assess Current Patient Data: Labs: Laboratory Tests Test 08/13/20 06:00 White Blood Count 11.4 x10^3/uL Red Blood Count 5.18 x10^6/uL Hemoglobin 17.4 g/dL Hematocrit 53.2 % Mean Corpuscular Volume 103 fL Mean Corpuscular Hemoglobin 34 pg Mean Corpuscular Hemoglobin Concent 33 g/dL Red Cell Distribution Width 13.7 % Platelet Count 172 x10^3/uL Neutrophils (%) (Auto) 80 % Lymphocytes (%) (Auto) 14 % Monocytes (%) (Auto) 6 % Eosinophils (%) (Auto) 0 % Basophils (%) (Auto) 1 % Neutrophils # (Auto) 9.1 x10^3uL Lymphocytes # (Auto) 1.5 x10^3/uL Monocytes # (Auto) 0.7 x10^3/uL Eosinophils # (Auto) 0.0 x10^3/uL Basophils # (Auto) 0.1 x10^3/uL Sodium Level 142 mmol/L Potassium Level 3.6 mmol/L Chloride Level 100 mmol/L Carbon Dioxide Level 23 mmol/L Anion Gap 19 Blood Urea Nitrogen 20 mg/dL Creatinine 1.5 mg/dL Estimated GFR (Cockcroft-Gault) 49.3 BUN/Creatinine Ratio 13 Glucose Level 68 mg/dL Calcium Level 9.8 mg/dL Total Bilirubin 1.5 mg/dL Aspartate Amino Transf (AST/SGOT) 32 U/L Alanine Aminotransferase (ALT/SGPT) 54 U/L Alkaline Phosphatase 73 U/L Total Protein 7.2 g/dL Albumin 3.8 g/dL Albumin/Globulin Ratio 1.1 Ethyl Alcohol Level < 10 mg/dL Current Medications Medications (Trade) Dose Ordered Sig/Mitzy Route PRN Reason Start Time Stop Time Status Last Admin Dose Admin Lorazepam (Ativan Inj) 4 mg 1X ONCE IVP 08/13/20 06:15 08/13/20 06:17 DC Vital Signs: Vital Signs Date Time Temp Pulse Resp B/P (MAP) Pulse Ox O2 Delivery O2 Flow Rate FiO2 08/13/20 07:00 68 23 162/105 (124) 100 Nasal Cannula 2.0 08/13/20 05:54 98.2 EKG: EKG: [] Radiology/Procedures: Radiology/Procedures: [] Heart Score: Risk Factors: Risk Factors: DM, Current or recent (<one month) smoker, HTN, HLP, family history of CAD, obesity. Risk Scores: Score 0 - 3: 2.5% MACE over next 6 weeks - Discharge Home Score 4 - 6: 20.3% MACE over next 6 weeks - Admit for Clinical Observation Score 7 - 10: 72.7% MACE over next 6 weeks - Early Invasive Strategies Course & Med Decision Making: Course & Med Decision Making Pertinent Labs and Imaging studies reviewed. (See chart for details) [] 50-year-old male presents with generalized tonic-clonic seizure. Patient received benzos prior to arrival and shortly after arrival he stopped seizing. Patient reassessed multiple times and 7:20 AM patient is alert and oriented back to his neurological baseline. Patient does complain of a headache. I discussed the case with Dr. Tillman, he does the patient well and says that the seizures are due to benzo withdrawal. I discussed the case with the patient and says he has not taken Xanax in several days. Patient says he has a primary doctor who prescribes the Xanax on a told him that he will need to contact him for a prescription. Patient blood sugar 68 and he will give a p.o. trial recheck his blood sugar and we will treat his headache with Toradol. Patient is neurologically intact, doubt intracranial hemorrhage. Patient has mild hyperglycemia and tolerate p.o. in the ER. Patient's repeat blood sugar was over 100. Jj Disclaimer: Jj Disclaimer: This electronic medical record was generated, in whole or in part, using a voice recognition dictation system. Departure Departure: Impression: Primary Impression: Withdrawal from benzodiazepine Additional Impression: Seizure Disposition: 01 DC HOME SELF CARE/HOMELESS Condition: STABLE Referrals: DAYAMI DANIELS (PCP) CALL TODAY REGARDING XANAX Patient Instructions: Benzodiazepine Withdrawal, Seizure, Adult Additional Instructions: EMERGENCY DEPARTMENT GENERAL DISCHARGE INSTRUCTIONS THANK YOU for coming to [facility] Emergency Department (ED) today and trusting us with your care. We trust that you had a positive experience in our Emergency Department. If you wish to speak to the department Management you can contact the emergency department at YOUR FOLLOW UP INSTRUCTIONS ARE FOLLOWS: Do you have a private doctor? If you do not have a private doctor, please ask for a resource list of physicians or clinics that may be able to assist you with follow up care. The Emergency Physician has interpreted your x-rays. The X-ray specialist will also review them. If there is a change in the findings you will be notified in 48 hours when at all possible. A lab test or lab culture may have been done, your results will be reviewed and you will be notified if you need a change in treatment. ADDITIONAL INSTRUCTIONS AND INFORMATION Your care today has been supervised by a physician who is specially trained in emergency care. Many problems require more than one evaluation for a complete diagnosis and treatment. We recommend that you schedule your follow up appointment as recommended to ensure complete treatment of your illness or injury. If you are unable to obtain follow up care and continue to have a problem, or if your condition worsens we recommend that you return to the ED. We are not able to safely determine your condition over the phone nor are we able to give sound medical advice over the phone. For these safety reasons, if you call for medical advice we will ask you to come to the ED for further evaluation If you have any questions regarding these discharge instructions please call the ED at . SAFETY INFORMATION In the interest of safety, wellness, and injury prevention; we encourage you to wear your seatbelt, if you smoke; quit smoking, and we encourage your family to use protective helmet for bicycling and other sporting events that present an increased risk for head injury. IF YOUR SYMPTOMS WORSEN OR NEW SYMPTOMS DEVELOP, OR YOU HAVE CONCERNS ABOUT YOUR CONDITION; OR IF YOUR CONDITION WORSENS WHILE YOU ARE WAITING FOR YOUR FOLLOW UP APPOINTMENT; EITHER CONTACT YOUR PRIMARY CARE DOCTOR, THE PHYSICIAN WHOSE NAME AND NUMBER YOU WERE GIVEN, OR RETURN TO THE ED IMMEDIATELY. Scripts Lorazepam (ATIVAN) 1 Mg Tablet 1 TAB PO TID for anxiety MDD 3 Tablet(s) for 1 Day, #3 TAB 0 Refills Prov: KYRA TIERNEY MD 08/13/20 KYRA TIERENY MD Aug 13, 2020 06:18
[2020-08-13 06:56] LABS: BASO # 0.1 x10^3/uL (0.0-0.2); BASO % 1 % (0-3); EOS % 0 % (0-3); HEMATOCRIT 53.2 % (39.0-53.0); HEMOGLOBIN 17.4 g/dL (13.0-17.5); LYMPH # 1.5 x10^3/uL (1.0-4.8); LYMPH % 14 % (24-48); MEAN CORPUSCULAR HEMOGLOBIN 34 pg (25-35); MEAN CORPUSCULAR HGB CONC 33 g/dL (31-37); MEAN CORPUSCULAR VOLUME 103 fL (79-100); MONO # 0.7 x10^3/uL (0.0-1.1); MONO % 6 % (0-9); NEUT # 9.1 x10^3uL (1.8-7.7); NEUT % 80 % (31-73); PLATELET COUNT 172 x10^3/uL (140-400); RED BLOOD COUNT 5.18 x10^6/uL (4.30-5.70); RED CELL DISTRIBUTION WIDTH 13.7 % (11.5-14.5); WHITE BLOOD COUNT 11.4 x10^3/uL (4.0-11.0)
[2020-08-13 07:01] LABS: CALCIUM 9.8 mg/dL (8.5-10.1); CREATININE 1.5 mg/dL (0.7-1.3); GFR 49.3; POTASSIUM 3.6 mmol/L (3.5-5.1)
[2020-08-13 07:07] LABS: ALBUMIN 3.8 g/dL (3.4-5.0); ALBUMIN/GLOBULIN RATIO 1.1 (1.0-1.7); TOTAL BILIRUBIN 1.5 mg/dL (0.2-1.0); TOTAL PROTEIN 7.2 g/dL (6.4-8.2)
[2020-08-13 09:10] VITALS: BP 154/72
== END ==
LOC: ER 05:54
DX: F19.239 Other psychoactive substance dependence with withdrawal, unspecified (principal); G40.89 Other seizures; F17.210 Nicotine dependence, cigarettes, uncomplicated; G89.29 Other chronic pain; Z87.442 Personal history of urinary calculi
CPT/HCPCS: 36415; 80053; 85025; 96374; 99284; G0480; J1885

== ENCOUNTER 2020-08-14 14:10 | Inpatient (IN) | payer MEDICARE, MEDICAID ==
[~2020-08-14] VITALS: Ht 170.2 cm; Wt 64.7 kg
[2020-08-14] VITALS (7 sets, daily range): BP systolic 140–169; BP diastolic 97–106
[~2020-08-14 14:10] MED LIST changes: -ATOR20TA58 PO; -KETOROLAC 15 MG/ML VIAL. IVP ONE; -NABU750T7 PO; -OXYC30TA21 PO; -SERT100T PO; -TRAZ-125 PO
--- NOTE | 2020-08-14 14:32 | PHYS DOC ---
Past History Past Medical History: Anxiety, Kidney Stones, Seizure, Other Additional Past Medical Histor: CHRONIC NECK PAIN Past Surgical History: Cholecystectomy, Other Additional Past Surgical Histo: UNKNOWN SURGICAL HX Smoking: Cigarettes, Greater than 1 pack/day Alcohol Use: None Drug Use: None General Adult EDM: Chief Complaint: SEIZURE HPI: HPI: Patient is a 50-year-old male who arrives EMS after a seizure. Patient has been here multiple times for benzodiazepine withdrawal seizures. Patient was found by his son with altered mental status. Patient received Versed prior to arrival and his seizure has been controlled. History, physical and review of systems are limited due to altered mental status. Review of Systems: Review of Systems: Review of systems is limited due to altered mental status Allergies: Allergies: Allergies Coded Allergies Type Severity Reaction Last Updated Verified No Known Drug Allergies 08/06/20 No Physical Exam: PE: Constitutional: Disheveled, no respiratory distress HENT: Normocephalic, atraumatic, bilateral external ears normal, no trismus, nose normal. [] Eyes: PERRLA, EOMI, conjunctiva normal, no discharge. [] Neck: Normal range of motion, no tenderness, supple, no stridor. [] Cardiovascular: Tachycardia, cap refill less than 2 seconds Lungs & Thorax: Diminished breath sounds bilaterally Abdomen: soft, no tenderness, no masses, no pulsatile masses. [] Skin: Warm, dry, no erythema, no rash. [] Back: No tenderness, no CVA tenderness. [] Extremities: No tenderness, no cyanosis, no clubbing, ROM intact, no edema. [] Neurologic: Postictal and confused normal motor function, normal sensory function, no focal deficits noted. [] Psychologic: Unable to assess Current Patient Data: Labs: Laboratory Tests Test 08/14/20 14:30 White Blood Count 12.1 x10^3/uL Red Blood Count 5.24 x10^6/uL Hemoglobin 17.6 g/dL Hematocrit 54.2 % Mean Corpuscular Volume 103 fL Mean Corpuscular Hemoglobin 34 pg Mean Corpuscular Hemoglobin Concent 32 g/dL Red Cell Distribution Width 13.8 % Platelet Count 178 x10^3/uL Neutrophils (%) (Auto) 79 % Lymphocytes (%) (Auto) 13 % Monocytes (%) (Auto) 7 % Eosinophils (%) (Auto) 0 % Basophils (%) (Auto) 1 % Neutrophils # (Auto) 9.6 x10^3uL Lymphocytes # (Auto) 1.6 x10^3/uL Monocytes # (Auto) 0.8 x10^3/uL Eosinophils # (Auto) 0.0 x10^3/uL Basophils # (Auto) 0.1 x10^3/uL Platelet Estimate Pending Sodium Level 142 mmol/L Potassium Level 4.2 mmol/L Chloride Level 102 mmol/L Carbon Dioxide Level 23 mmol/L Anion Gap 17 Blood Urea Nitrogen 20 mg/dL Creatinine 1.0 mg/dL Estimated GFR (Cockcroft-Gault) 78.8 BUN/Creatinine Ratio 20 Glucose Level 97 mg/dL Calcium Level 9.3 mg/dL Magnesium Level 2.1 mg/dL Total Bilirubin 1.3 mg/dL Aspartate Amino Transf (AST/SGOT) 78 U/L Alanine Aminotransferase (ALT/SGPT) 48 U/L Alkaline Phosphatase 67 U/L Total Protein 7.0 g/dL Albumin 3.5 g/dL Albumin/Globulin Ratio 1.0 Lipase 201 U/L Ethyl Alcohol Level < 10 mg/dL Current Medications Medications (Trade) Dose Ordered Sig/Mitzy Route PRN Reason Start Time Stop Time Status Last Admin Dose Admin Lorazepam (Ativan Inj) 2 mg 1X ONCE IVP 08/14/20 16:45 08/14/20 16:46 DC 08/14/20 17:29 Vital Signs: Vital Signs Date Time Temp Pulse Resp B/P (MAP) Pulse Ox O2 Delivery O2 Flow Rate FiO2 08/14/20 17:05 120 16 158/98 (118) 92 Room Air 08/14/20 16:30 4.0 08/14/20 14:15 97.9 EKG: EKG: [] EKG interpreted by me is normal, sinus rhythm with a rate of 94 right axis deviation, nonspecific ST changes Radiology/Procedures: Radiology/Procedures: [][address] [address] IMAGING REPORT Signed PATIENT: EDGAR DE LOS SANTOS ACCOUNT: [id number] : 1970 LOCATION: ER AGE: 50 SEX: M EXAM STATUS: REG ER ORD. PHYSICIAN: KYRA TIERNEY MD REASON: seizure PROCEDURE: PORTABLE CHEST 1V INDICATION: Reason: seizure / Spl. Instructions: / History: COMPARISON: August 07, 2020 FINDINGS: Single view of chest obtained. Prominent cardiomediastinal silhouette again seen. Mild interstitial prominence similar to prior. Calcified granuloma at left lung again seen. IMPRESSION: * Similar exam compared to prior without a definite new region of consolidation. Electronically signed by: Dayami Vigil MD (08/14/2020 2:53 PM) [id number] DICTATED AND SIGNED BY: DAYAMI VIGIL MD DATE: 08/14/20 1453 CC: DAYAMI DANIELS; KYRA TIERNEY MD ~ Heart Score: Risk Factors: Risk Factors: DM, Current or recent (<one month) smoker, HTN, HLP, family history of CAD, obesity. Risk Scores: Score 0 - 3: 2.5% MACE over next 6 weeks - Discharge Home Score 4 - 6: 20.3% MACE over next 6 weeks - Admit for Clinical Observation Score 7 - 10: 72.7% MACE over next 6 weeks - Early Invasive Strategies Course & Med Decision Making: Course & Med Decision Making Pertinent Labs and Imaging studies reviewed. (See chart for details) [] 30-year-old male with a history of benzodiazepine withdrawal seizures. Patient assessed multiple times in the ER and is quite encephalopathic. Patient has no further seizure activity in ER but has been treated with additional benzos. Patient will need to be admitted for recurrent seizures and benzodiazepine withdrawal. Discussed the case with Dr. Tillman who will admit. Jj Disclaimer: Jj Disclaimer: This electronic medical record was generated, in whole or in part, using a voice recognition dictation system. Departure Departure: Impression: Primary Impression: Seizure Additional Impressions: Withdrawal from benzodiazepine Polysubstance abuse Encephalopathy acute Disposition: ADMITTED INPT THIS HOSP Admitting Physician: Juliocesar Tillman Condition: STABLE Referrals: DAYAMI DANIELS (PCP) KYRA TIERNEY MD Aug 14, 2020 14:32
[2020-08-14 14:50] LABS: BASO # 0.1 x10^3/uL (0.0-0.2); BASO % 1 % (0-3); EOS % 0 % (0-3); HEMATOCRIT 54.2 % (39.0-53.0); HEMOGLOBIN 17.6 g/dL (13.0-17.5); LYMPH # 1.6 x10^3/uL (1.0-4.8); LYMPH % 13 % (24-48); MEAN CORPUSCULAR HEMOGLOBIN 34 pg (25-35); MEAN CORPUSCULAR HGB CONC 32 g/dL (31-37); MEAN CORPUSCULAR VOLUME 103 fL (79-100); MONO # 0.8 x10^3/uL (0.0-1.1); MONO % 7 % (0-9); NEUT # 9.6 x10^3uL (1.8-7.7); NEUT % 79 % (31-73); PLATELET COUNT 178 x10^3/uL (140-400); RED BLOOD COUNT 5.24 x10^6/uL (4.30-5.70); RED CELL DISTRIBUTION WIDTH 13.8 % (11.5-14.5); WHITE BLOOD COUNT 12.1 x10^3/uL (4.0-11.0)
--- NOTE | 2020-08-14 14:56 | RAD ---
INDICATION: Reason: seizure / Spl. Instructions: / History: COMPARISON: August 07, 2020 FINDINGS: Single view of chest obtained. Prominent cardiomediastinal silhouette again seen. Mild interstitial prominence similar to prior. Calcified granuloma at left lung again seen. IMPRESSION: * Similar exam compared to prior without a definite new region of consolidation. Electronically signed by: Ortiz Corona MD (08/14/2020 2:53 PM) [id number]
[2020-08-14 14:57] LABS: CALCIUM 9.3 mg/dL (8.5-10.1); GFR 78.8; POTASSIUM 4.2 mmol/L (3.5-5.1)
[2020-08-14 15:02] LABS: ALBUMIN 3.5 g/dL (3.4-5.0); MAGNESIUM 2.1 mg/dL (1.8-2.4); TOTAL BILIRUBIN 1.3 mg/dL (0.2-1.0)
--- NOTE | 2020-08-14 17:10 | EKG ---
[address] [address] Test Date: 2020-08-14 Test Time: 14:34:07 Pat Name: EDGAR DE LOS SANTOS Department: Room: Gender: M [employer] Director: FRED : 1970 Requested By: KYRA TIERNEY Order Number: [id number] Reading MD: Measurements Intervals Priddy Rate: 94 P: 64 NV: 142 QRS: 105 QRSD: 94 T: 46 QT: 336 QTc: 425 Interpretive Statements SINUS RHYTHM RIGHTWARD AXIS S1,S2,S3 PATTERN RVH WITH REPOLARIZATION ABNORMALITY ABNORMAL ECG RI6.02 No previous ECG available for comparison
[2020-08-14] MEDS ORDERED: FUROSEMIDE 40 MG/4 ML VIAL ONE (20:12)
[2020-08-14] MEDS ORDERED: FUROSEMIDE 40 MG/4 ML VIAL IVP ONE (20:15)
--- NOTE | 2020-08-14 20:59 | RAD ---
AP chest x-ray HISTORY: Shortness of breath. COMPARISON: Chest x-ray August 14, 2020. FINDINGS: Since the prior exam there is right lung volume loss with elevation right diaphragm and rightward shift of heart and mediastinum and increased heterogeneous opacity throughout right lung. Left lung clear. No pneumothorax or pleural effusions evident. Calcified granuloma left lower lobe again noted. IMPRESSION: Worsening right pulmonary infiltrates and associated moderate right lung volume loss with rightward shift of heart and mediastinum and elevation of the right diaphragm which could indicate limited expansion of the lung due to endobronchial mucous plugging or bronchial stenosis. Electronically signed by: Davion Lopez MD (08/14/2020 8:56 PM) [facility]
[2020-08-14] MEDS ORDERED: ACETAMINOPHEN 325 MG TABLET PO PRN (21:00)
[2020-08-14 21:04] LABS: % BLASTS 3 % (0-0); % LYMPHS 10 % (24-48); % MONOS 5 % (0-10); % SEGS 82 % (35-66)
[2020-08-14 21:05] LABS: PLT ESTIMATE ADEQUATE (ADEQUATE)
[2020-08-14] MEDS: LABETALOL 20 MG/4 ML DISP.SYRIN. IVP PRN ×2 (21:10→22:31)
[2020-08-14] MEDS: PIPERACILLIN/TAZOBACTAM 3.375 GM in IV NORMAL SALINE 50ML 50 ML IV SCH (21:11)
--- NOTE | 2020-08-14 21:13 | HP ---
ADMIT DATE: 08/14/2020 ATTENDING PHYSICIAN: Dr. High. CHIEF COMPLAINT: Seizures. HISTORY OF PRESENT ILLNESS: The patient is a 50-year-old gentleman who is admitted from the ED following a witnessed grand mal seizure. He had altered mentation. He has been in the ED multiple times this week alone for benzodiazepine withdrawal. He is mostly noncompliant, does not take his medications. He usually leaves AMA when he wakes up. He received some Versed prior to arrival. The seizure has been controlled. He is still obtunded from the benzodiazepines. He also has coarse lung sounds. Clinically, he may have aspirated. A followup x-ray compared with one done earlier today showed an infiltrate in the right mid lobe, middle lung and the right lower lobe. He is a smoker of cigarettes along with other substance abuse. Blood cultures have been drawn, empiric antibiotics have been started in addition to increased supplemental oxygen, breathing treatments and IV Keppra. In addition IV antibiotics has been started, pending cultures. He has a tachyarrhythmia with a baseline heart rate. It is a sinus tachycardia, rate between 130 and 140, intravenous labetalol has been ordered to slow his ventricular rate. PAST MEDICAL HISTORY: Significant for chronic neck pain, kidney stones, idiopathic seizure disorder, benzodiazepine withdrawal, and polysubstance abuse. PAST SURGICAL HISTORY: Includes cholecystectomy. SOCIAL HISTORY: Cigarettes and other substance of abuse. FAMILY HISTORY: Unobtainable. REVIEW OF SYSTEMS: Unobtainable due to the patient's state. PHYSICAL EXAMINATION: GENERAL: When I saw him, this is an obtunded, disheveled gentleman who was tachycardic and tachypneic. INITIAL VITAL SIGNS: Showed a blood pressure of 168/103, pulse was between 120 and 140 per minute, oxygen saturation marginal 91% on 4 liters. We had to increase it to Venturi mask. He was saturating about 88%. He was afebrile. HEENT: Head is without trauma. Pupils are reactive. Sclerae nonicteric. Oropharynx clear. Mucous membranes dry. NECK: Supple, no bruits or stridor. LUNGS: Coarse rhonchi bilaterally. CARDIOVASCULAR: Showed distant heart tones, tachycardic rhythm. No obvious gallops. Peripheral pulses are palpable and full. ABDOMEN: Obese, protuberant. Some tympany. No guarding, no rebound tenderness. EXTREMITIES: Showed no cyanosis or edema. NEUROLOGIC: Obtunded. He is nonambulatory. He is quite sedated. PERTINENT LABORATORY STUDIES: Blood cultures are pending. His electrolytes are within normal range. Creatinine is 1.0 mg percent. Hemoglobin is 17.6 g/dL with a white count of 12,000. Chest x-ray as noted. A second x-ray showed infiltrate in the right mid lung and right lower lung. ASSESSMENT: 1. A 50-year-old gentleman with breakthrough seizures from benzodiazepine withdrawal. 2. Polysubstance abuse. 3. Aspiration pneumonia. 4. Acute on chronic respiratory failure. 5. Tachyarrhythmia. PLAN: 1. Admit to the ICU. 2. Cultures have been drawn. 3. Empiric Zosyn has been ordered. 4. Intravenous Keppra for seizure disorder. 5. Intravenous labetalol. 6. We will adjust his antibiotics and advance his diet as tolerated. 7. Supplemental oxygen with breathing treatments. Prognosis is guarded. CLIVE HIGH MD DR: OVI/eliza JOB#: [id number] / [id number]
[2020-08-15] VITALS (21 sets, daily range): BP systolic 134–162; BP diastolic 93–109
[2020-08-15] MEDS ORDERED: ATOR20TA58 PO (00:27)
[2020-08-15] MEDS ORDERED: ARIP5TAB13 PO (00:27)
[2020-08-15] MEDS ORDERED: OXYC80TA16 PO (00:27)
[2020-08-15] MEDS ORDERED: SERT100T PO (00:27)
[2020-08-15] MEDS ORDERED: OXYC30TA21 PO (00:27)
[2020-08-15] MEDS ORDERED: TRAZ-125 PO (00:27)
[2020-08-15] MEDS ORDERED: NABU750T7 PO (00:27)
[2020-08-15] MEDS: PIPERACILLIN/TAZOBACTAM 3.375 GM in IV NORMAL SALINE 50ML 50 ML IV SCH ×4 (00:59→18:12)
[2020-08-15] MEDS: LABETALOL 20 MG/4 ML DISP.SYRIN. IVP PRN ×3 (05:14→18:12)
[2020-08-15] MEDS: IPRATRPIUM/ALBUTEROL 0.5/2.5MG 3 ML NEBU. NEB SCH ×4 (05:43→19:58)
[2020-08-15] MEDS ORDERED: IPRATRPIUM/ALBUTEROL 0.5/2.5MG 3 ML NEBU. ONE (05:43)
[2020-08-15 06:44] LABS: CALCIUM 9.6 mg/dL (8.5-10.1); CREATININE 1.3 mg/dL (0.7-1.3); GFR 58.2
[2020-08-15 06:48] LABS: POTASSIUM 2.4 mmol/L (3.5-5.1)
[2020-08-15] MEDS ORDERED: MAGNESIUM SULFATE 1GM 100 ML IV ONE (07:30)
[2020-08-15 07:31] LABS: BASO # 0.1 x10^3/uL (0.0-0.2); BASO % 1 % (0-3); EOS % 0 % (0-3); HEMATOCRIT 61.6 % (39.0-53.0); HEMOGLOBIN 20.4 g/dL (13.0-17.5); LYMPH # 1.6 x10^3/uL (1.0-4.8); LYMPH % 9 % (24-48); MEAN CORPUSCULAR HEMOGLOBIN 34 pg (25-35); MEAN CORPUSCULAR HGB CONC 33 g/dL (31-37); MEAN CORPUSCULAR VOLUME 101 fL (79-100); MONO # 1.1 x10^3/uL (0.0-1.1); MONO % 6 % (0-9); NEUT # 14.8 x10^3uL (1.8-7.7); NEUT % 84 % (31-73); PLATELET COUNT 212 x10^3/uL (140-400); RED BLOOD COUNT 6.08 x10^6/uL (4.30-5.70); RED CELL DISTRIBUTION WIDTH 13.8 % (11.5-14.5); WHITE BLOOD COUNT 17.7 x10^3/uL (4.0-11.0)
[2020-08-15 08:32] LABS: % BANDS 3 % (0-9); % LYMPHS 12 % (24-48); % MONOS 7 % (0-10); % SEGS 78 % (35-66); PLT ESTIMATE ADEQUATE (ADEQUATE)
[2020-08-15] MEDS ORDERED: methylPREDNISolone SOD SUCC PF 125 MG/2 ML VIAL. IV ONE (09:30)
[2020-08-15] MEDS: POTASSIUM CHLORIDE 20 MEQ TABLET.ER. PO SCH ×2 (09:35→19:57)
[2020-08-15] MEDS: POTASSIUM CHLORIDE 10MEQ 100 ML IV SCH ×2 (10:03→10:54)
[2020-08-15 10:34] LABS: BGAS PH 7.48 (7.35-7.46)
[2020-08-15] MEDS: methylPREDNISolone SOD SUCC PF 40 MG/ML VIAL. IV SCH ×2 (12:22→18:12)
[2020-08-15 13:51] LABS: CALCIUM 9.3 mg/dL (8.5-10.1); CREATININE 1.3 mg/dL (0.7-1.3); GFR 58.2; POTASSIUM 3.4 mmol/L (3.5-5.1)
--- NOTE | 2020-08-15 14:12 | RAD ---
Examination: CHEST AP ONLY History: Reason: f/u previous, hypoxia / Spl. Instructions: / History: Comparison: 08/14/2020. Findings: AP portable upright frontal view of the chest was obtained. The cardiomediastinal silhouette is normal. Small right pleural effusion is present. Adjacent basilar atelectasis/infiltrate noted. Left lung field is clear. No pneumothorax. Os trigonum with the left lung base. Bony structures are grossly unremarkable. Right upper quadrant surgical clips. IMPRESSION: Small right pleural effusion with adjacent atelectasis/infiltrate is more evident in the interval. Follow-up to resolution recommended. Electronically signed by: Manuelito Whitt MD (08/15/2020 2:10 PM) [facility]
--- NOTE | 2020-08-15 15:34 | DS ---
DATE OF DISCHARGE: 08/15/2020 HOSPITAL COURSE: The patient is a 50-year-old male patient who apparently was brought to the Emergency Room after a seizure. Apparently, he has been here multiple times for benzodiazepine withdrawal seizure. The patient was found by his son with altered mental status, has received Versed prior to arrival and his seizure has been controlled. He was continued on IV Keppra and started on IV antibiotic in the form of Zosyn as well as steroids and bronchodilator. His initial chest x-ray done yesterday at 1424 showed the patient has prominent cardiomediastinal silhouette and mild interstitial prominence similar to prior calcified granulomas at the left lung again seen. His repeat chest x-ray showed the patient has worsening right pulmonary infiltrate and associated moderate right lung volume loss withdrawal with rightward shift of the heart and mediastinum and elevation of the right hemidiaphragm, which could indicate limited extension of the lungs due to endobronchial mucus plugging or bronchial stenosis. When I saw him this afternoon, the patient was tachypneic, continued to be extremely encephalopathic and therefore, a decision was made to transfer him to [facility] as he will need bronchoscopy to remove the mucus plug from the right lung. His chemistry showed his potassium was low at 2.4 and his white cell count went up to 17,700. PAST MEDICAL HISTORY: Unremarkable except for severe anxiety and probably chronic obstructive pulmonary disease, apparently has also renal stones and has had also chronic neck pain. PAST SURGICAL HISTORY: Significant for cholecystectomy as well as the patient has ACDF spanning C5-C6 and the hardware is apparently intact and well fixated. ALLERGIES: He has no known drug allergies. MEDICATIONS: He was discharged home to continue on Keppra 1000 mg twice a day. It is not clear whether the patient is compliant with his medication or not. PHYSICAL EXAMINATION: GENERAL: When I examined him this afternoon, he was resting slightly propped up in bed, clearly tachypneic, hypoxic. He is requiring 7 liters to maintain his oxygen saturation at 94%. VITAL SIGNS: His heart rate was 105, blood pressure was 151/109, temperature was 99.1 and his respiratory rate was 42 and oxygen saturation was 94%. HEAD, EYES, EARS, NOSE AND THROAT: Showed normocephalic, atraumatic. NECK: Supple. HEART: Normal first and second heart sounds. No gallop, rub or murmur. CHEST: Shows central trachea, equal chest expansion, air entry anteriorly, absent breath sounds and decreased air entry in the right side posteriorly. ABDOMEN: Scaphoid, soft, nontender. NEUROLOGIC: He is very lethargic, but arousable; opens eyes, tracks, but mumbles, but is nonverbal. All his cranial nerves seem to be grossly intact. He moved extremities spontaneously. LABORATORY DATA: This morning showed a white cell count 17,700, hemoglobin 20, hematocrit 61, MCV 101, and platelet count 212,000 with a manual differential that showed 84% polymorphs, 9% lymphocytes and 6% monocytes. His chemistry this morning showed a serum sodium 143, potassium 3.4, chloride 100, bicarbonate 28, anion gap of 15, BUN 22, creatinine 1.3, estimated GFR was 58 mL per minute. His glucose 127, calcium was 9.5. His blood gases this morning showed a pH of 7.48, pCO2 of 45, pO2 162, bicarbonate 33 and oxygen saturation was 100% on FiO2 of 100%. His blood alcohol level was less than 10. His blood cultures are negative. His most recent chest x-ray showed worsening right pulmonary infiltrate and associated moderate right lung volume loss with rightward shift of the heart and mediastinum and elevation of the right hemidiaphragm. FINAL DISCHARGE DIAGNOSES: Right pulmonary infiltrate and associated moderate right lung volume loss with rightward shift of the heart and mediastinum and elevation of the right hemidiaphragm, which could indicate limited expansion of the lungs due to endobronchial mucus plugging and/or bronchial stenosis. Given his collapse of the right lung and his hypoxia, the patient will be transferred to [facility] to be seated, consult the wine pasteurizer as he probably needs a bronchoscopy and mucus plug removal. PETE WALLER MD DR: DERICK/eliza JOB#: [id number] / [id number]
[2020-08-15] MEDS ORDERED: POTASSIUM CL 40MEQ D5-0.45NACL 1,000 ML IV SCH (17:45)
== END 2020-08-15 20:45 | disposition short-term general hospital (02) | DRG 177 ==
LOC: ER 14:10 → ICU 18:55
PROVIDERS: ADMIT Hospitalist; ATTEND Hospitalist
PROC: 5A0935A Assistance with Respiratory Ventilation, Less than 24 Consecutive Hours, High Flow/Velocity Cannula (ICD-10-PCS; principal; 2020-08-14)
PROC: 5A0935A Assistance with Respiratory Ventilation, Less than 24 Consecutive Hours, High Flow/Velocity Cannula (ICD-10-PCS; 2020-08-15)
DX: J69.0 Pneumonitis due to inhalation of food and vomit (principal); J96.21 Acute and chronic respiratory failure with hypoxia; F13.239 Sedative, hypnotic or anxiolytic dependence with withdrawal, unspecified; G93.40 Encephalopathy, unspecified; T17.890A Other foreign object in other parts of respiratory tract causing asphyxiation, initial encounter; G40.409 Other generalized epilepsy and epileptic syndromes, not intractable, without status epilepticus; F17.210 Nicotine dependence, cigarettes, uncomplicated; J98.09 Other diseases of bronchus, not elsewhere classified; F41.9 Anxiety disorder, unspecified; G89.29 Other chronic pain; M54.2 Cervicalgia; J44.9 Chronic obstructive pulmonary disease, unspecified; Z87.442 Personal history of urinary calculi; Z91.19 Patient's noncompliance with other medical treatment and regimen; Z90.49 Acquired absence of other specified parts of digestive tract
CPT/HCPCS: 36415; 71045; 80048; 80053; 82550; 82803; 83690; 83735; 85007; 85025; 87040; 93005; 94640; 96374; G0480; J1940; J1953; J2060; J2543; J2920; J2930; J3475; J3480; J3490; J7042; 99285-25

== ENCOUNTER → 2020-09-03 | Outpatient (CLI) | payer MEDICARE, MEDICAID ==
[2020-08-15 20:00] VITALS: BP 140/94
[~2020-09-03] MED LIST changes: +ATOR20TA58 PO; +NABU750T7 PO; +OXYC30TA21 PO; +SERT100T PO; +TRAZ-125 PO
--- NOTE | 2020-09-03 12:50 | RAD ---
AP and Lateral Views of the Chest 09/03/2020 12:00 AM Indication: Reason: COUGH / Spl. Instructions: / History: Comparison: Chest radiograph August 15, 2020 Findings: Interval resolution of right basilar infiltrate/effusion. There is no pneumothorax or effusion. Lungs the lungs are grossly clear. Heart size is normal. Calcified granuloma in the left lower lobe is stable. No acute osseous changes are seen. IMPRESSION: Resolution of previously seen right basilar effusion/infiltrates. No acute cardiopulmonary process is identified. Electronically signed by: Matthew Arciniega MD (09/03/2020 12:47 PM) [id number]
== END ==
LOC: DXRAD 12:16
PROVIDERS: ATTEND Physician Assistant
DX: J44.9 Chronic obstructive pulmonary disease, unspecified (principal)
CPT/HCPCS: 71046

== ENCOUNTER → 2021-04-15 | Outpatient (CLI) | payer MEDICARE, MEDICAID ==
[2020-08-15 20:00] VITALS: BP 140/94
[~2021-04-15] MED LIST changes: +NABU750T11 PO; -NABU750T7 PO
--- NOTE | 2021-04-15 17:29 | RAD ---
Chest, PA and Lateral: Technique: PA and lateral views of the chest were obtained. History: Shortness of breath. Comparison: 09/03/2020. Findings: Mild cardiomegaly.. The lungs are clear. The pleural margins are clear. Impression: No acute chest process is seen. Electronically signed by: Jason Pope MD (04/15/2021 5:27 PM) [id number]
== END ==
LOC: RAD 14:46
PROVIDERS: ATTEND Family Medicine
DX: J44.9 Chronic obstructive pulmonary disease, unspecified (principal); J96.11 Chronic respiratory failure with hypoxia; I51.7 Cardiomegaly
CPT/HCPCS: 71046

== ENCOUNTER → 2021-07-03 | Outpatient (CLI) | payer MEDICARE ==
[2020-08-15 20:00] VITALS: BP 140/94
== END ==
LOC: LAB 10:50
PROVIDERS: ATTEND Family Medicine
DX: R79.0 Abnormal level of blood mineral (principal)
CPT/HCPCS: 82607; 82746

== ENCOUNTER 2021-07-23 19:29 | Inpatient (IN) | payer MEDICARE ==
[~2021-07-23] VITALS: Ht 162.6 cm; Wt 79.1 kg
[~2021-07-23 19:29] MED LIST changes: -CYCL-331 PO; +CYCL10TA19 PO
[2021-07-23] MEDS ORDERED: NALOXONE 2 MG/2 ML DISP.SYRIN. IV ONE (19:45)
--- NOTE | 2021-07-23 19:57 | PHYS DOC ---
Past History Past Medical History: COPD Past Medical History Limited secondary to altered mental status Past Surgical History Limited secondary to altered mental status Smoking: Cigarettes Social History Limited secondary to altered mental status General Adult EDM: Chief Complaint: ALTERED MENTAL STATUS HPI: HPI: History of present illness limited due to altered mental status. Patient is a 55-year-old male presenting by EMS for altered mental status. He was found unresponsive by his family around 5 PM today. EMS states that there was an empty liter bottle of vodka and an empty bottle of oxycodone next to him. The last time the family saw him normal was around 2 PM today. He was given 2 mg Narcan by EMS and became more responsive. Patient is unable to report what happened. Review of Systems: Review of Systems: Review of systems limited due to altered mental status. Current Medications: Current Meds: Current Medications Medications (Trade) Dose Ordered Sig/Mitzy Start Time Stop Time Status Last Admin Dose Admin Multivitamins/ Minerals 10 ml/ Folic Acid 1 mg/ Thiamine HCl 100 mg/Sodium Chloride 1,011.3 ml @ 1,000.187 mls/hr 1X ONCE 07/23/21 19:45 07/23/21 20:45 UNV Naloxone HCl (Narcan) 1 mg 1X ONCE 07/23/21 19:45 07/23/21 19:46 UNV Physical Exam: PE: Constitutional: Ill-appearing, obtunded HENT: Normocephalic, atraumatic Eyes: PERRL, conjunctiva normal, no discharge Neck: Normal range of motion, supple Lungs & Thorax: Equal chest rise and fall, diminished breath sounds b/l. Abdomen: Soft, no tenderness Skin: Cool, dry, no erythema, no rash Extremities: No tenderness, ROM intact, no edema Neurologic: GCS 13 (eye-4, verbal-4, motor-5), moves all extremities Psychologic: Limited, judgment abnormal EKG: EKG: @2202 NSR at 83bpm, NO ST elevation, QRS 82ms, QT/QTc 360/429ms, nonspecific t wave inversion V1-V6. Radiology/Procedures: Radiology/Procedures: PROCEDURE: CT HEAD WO CONTRAST EXAMINATION: CT head without IV contrast INDICATION:51 years, Male, altered mental status, confusion. COMPARISON: None TECHNIQUE: Spiral acquisition of contiguous images from the skull base to the vertex were obtained. Bone window algorithms were reviewed. Exposure: One or more of the following individualized dose reduction techniques were utilized for this examination: 1. Automated exposure control 2. Adjustment of the mA and/or kV according to patient size 3. Use of iterative reconstruction technique. FINDINGS: Neither mass, midline shift, intracranial hemorrhage, acute/subacute ischemic changes, nor extraaxial fluid collections are seen. The brain parenchyma is normal in appearance. The ventricles are normal in size. Mild mucosal thickening of the ethmoid sinuses. Remaining paranasal sinuses, mastoid air cells and middle ears are clear. The orbital contents appear within normal limits. IMPRESSION: No evidence of acute intracranial abnormality. Electronically signed by: Mac Jim DO (07/23/2021 8:10 PM) [facility] PROCEDURE: PORTABLE CHEST 1V EXAMINATION: Chest radiograph. VIEWS: Single AP view of the chest COMPARISON: None INDICATION:51 years, Male, altered mental status, short of air. FINDINGS: Normal cardiomediastinal silhouette. Left perihilar and right basilar linear opacities. No focal consolidation. No pleural effusion or pneumothorax. No acute osseous process. IMPRESSION: Left perihilar and right basilar linear opacities favoring subsegmental atelectasis, infiltrates are not entirely excluded. Electronically signed by: Mac Jim DO (07/23/2021 8:05 PM) [facility] Heart Score: C/O Chest Pain: N/A Course & Med Decision Making: Course & Med Decision Making Pertinent Labs and Imaging studies reviewed. (See chart for details) Patient is a 51 yo M who presented by EMS for altered mental status, found unresponsive by family with empty bottle of vodka and empty bottle of oxycodone next to him. EMS gave 2 mg narcan and patient did become more responsive. GCS of 13 upon arrival. Patient placed on 5L nasal cannula to maintin oxygen saturation about 90%. Head CT negative for intracranial abnormality. CXR showed left and right opacities concerning for atelectasis or infiltrates. Dragon Disclaimer: Dragaidee Disclaimer: This electronic medical record was generated, in whole or in part, using a voice recognition dictation system. Departure Departure: Impression: Primary Impression: Altered mental status Qualified Codes: R41.82 - Altered mental status, unspecified Additional Impressions: Pancreatitis Qualified Codes: K85.90 - Acute pancreatitis without necrosis or infection, unspecified Overdose Qualified Codes: T50.901A - Poisoning by unspecified drugs, medicaments and biological substances, accidental (unintentional), initial encounter Renal insufficiency Dehydration Disposition: 09 ADMITTED INPATIENT Admitting Physician: Juliocesar Tillman Condition: STABLE Referrals: DAYAMI DANIELS (PCP) CAMILA ARIAS DO Jul 23, 2021 19:57
--- NOTE | 2021-07-23 20:08 | RAD ---
EXAMINATION: Chest radiograph. VIEWS: Single AP view of the chest COMPARISON: None INDICATION:51 years, Male, altered mental status, short of air. FINDINGS: Normal cardiomediastinal silhouette. Left perihilar and right basilar linear opacities. No focal cons olidation. No pleural effusion or pneumothorax. No acute osseous process. IMPRESSION: Left perihilar and right basilar linear opacities favoring subsegmental atelectasis, infiltrates are not entirely excluded. Electronically signed by: Mac Jim DO (07/23/2021 8:05 PM) [facility]
--- NOTE | 2021-07-23 20:13 | RAD ---
EXAMINATION: CT head without IV contrast INDICATION:51 years, Male, altered mental status, confusion. COMPARISON: None TECHNIQUE: Spiral acquisition of contiguous images from the skull base to the vertex were obtained. B one window algorithms were reviewed. Exposure: One or more of the following individualized dose reduction techniques were utilized for thi s examination: 1. Automated exposure control 2. Adjustment of the mA and/or kV according to patient size 3. Use of iterative reconstruction technique. FINDINGS: Neither mass, midline shift, intracranial hemorrhage, acute/subacute ischemic changes, nor extraaxial fluid collections are seen. The brain parenchyma is normal in appearance. The ventricles are normal in size. Mild mucosal thickening of the ethmoid sinuses. Remaining paranasal sinuses, mastoid air cells and mi ddle ears are clear. The orbital contents appear within normal limits. IMPRESSION: No evidence of acute intracranial abnormality. Electronically signed by: Mac Jim DO (07/23/2021 8:10 PM) [facility]
[2021-07-23] MEDS ORDERED: MVI, ADULT NO.4 WITH VIT K 10 ML, FOLIC ACID INJ 1 MG, THIAMINE INJ 100 MG in IV NORMAL... IV ONE (20:30)
[2021-07-23 20:35] LABS: BASO % 0 % (0-3); EOS % 0 % (0-3); HEMATOCRIT 56.2 % (39.0-53.0); LYMPH # 0.2 x10^3/uL (1.0-4.8); LYMPH % 2 % (24-48); MEAN CORPUSCULAR HEMOGLOBIN 34 pg (25-35); MEAN CORPUSCULAR HGB CONC 32 g/dL (31-37); MEAN CORPUSCULAR VOLUME 105 fL (79-100); MONO # 1.3 x10^3/uL (0.0-1.1); MONO % 8 % (0-9); NEUT # 14.2 x10^3uL (1.8-7.7); NEUT % 90 % (31-73); PLATELET COUNT 229 x10^3/uL (140-400); RED BLOOD COUNT 5.34 x10^6/uL (4.30-5.70); RED CELL DISTRIBUTION WIDTH 14.5 % (11.5-14.5); WHITE BLOOD COUNT 15.8 x10^3/uL (4.0-11.0)
[2021-07-23] MEDS ORDERED: LIDOCAINE 2% JELLY 6ML IN APPLICATOR. ONE (20:39)
[2021-07-23] MEDS ORDERED: IPRATRPIUM/ALBUTEROL 0.5/2.5MG 3 ML NEBU. NEB ONE ×2 (21:00→23:45)
[2021-07-23 21:15] LABS: MAGNESIUM 2.5 mg/dL (1.8-2.4)
[2021-07-23 21:19] LABS: % BANDS 1 % (0-9); % LYMPHS 6 % (24-48); % MONOS 4 % (0-10); % SEGS 89 % (35-66); PLT ESTIMATE ADEQUATE (ADEQUATE)
[2021-07-23 21:20] LABS: BARBITURATES NEG (NEG); BENZODIAZEPINES POS (NEG); CANNABINOIDS NEG (NEG); COCAINE NEG (NEG); METHADONE NEG (NEG); OPIATES POS (NEG); PHENCYCLIDINE NEG (NEG)
[2021-07-23 21:22] LABS: AMPHETAMINE/METHAMPHETAMINE NEG (NEG)
[2021-07-23 21:23] LABS: BILIRUBIN,URINE NEG (NEG); CLARITY,URINE CLEAR; COLOR,URINE YELLOW; GLUCOSE,URINE NEG (NEG)
[2021-07-23 21:24] LABS: BACTERIA,URINE 0 /HPF (0-FEW); NITRITE,URINE NEG (NEG); SQUAMOUS EPITHELIAL CELL,UR OCC /LPF; UROBILINOGEN,URINE 0.2 mg/dL (0.2 mg/dL); WBC,URINE 0 /HPF (0-4)
[2021-07-23 21:40] LABS: ACETAMIN < 2.0 mcg/mL (10-30); ETHANOL < 10 mg/dL (0-10); SALIC 2.1 mg/dL (2.8-20.0)
[2021-07-23] MEDS ORDERED: IV NORMAL SALINE 1,000ML 1,000 ML IV ONE (22:30)
[2021-07-23 23:35] LABS: CALCIUM 9.2 mg/dL (8.5-10.1); CREATININE 1.8 mg/dL (0.7-1.3); GFR 39.8
[2021-07-23 23:41] LABS: ALBUMIN 3.5 g/dL (3.4-5.0); ALBUMIN/GLOBULIN RATIO 0.8 (1.0-1.7); TOTAL BILIRUBIN 0.6 mg/dL (0.2-1.0)
[2021-07-24] MEDS ORDERED: FAMOTIDINE 20 MG/2 ML VIAL IVP ONE (00:30)
[2021-07-24] MEDS ORDERED: ACETAMINOPHEN 325 MG TABLET PO PRN (00:30)
[2021-07-24] MEDS ORDERED: ONDANSETRON PF 4 MG/2 ML VIAL. IVP PRN (00:30)
[2021-07-24] MEDS ORDERED: KETOROLAC 15 MG/ML VIAL. IVP ONE (00:30)
[2021-07-24] MEDS ORDERED: ALBUTEROL SULFATE 2.5 MG/3 ML NEBU. NEB PRN (00:30)
[2021-07-24] MEDS ORDERED: IV NORMAL SALINE 1,000ML 1,000 ML IV SCH (01:00)
[2021-07-24 03:09] VITALS: BP 119/72
[2021-07-24 05:54] VITALS: BP 140/95
--- NOTE | 2021-07-24 13:20 | EKG ---
[address] [address] Test Date: 2021-07-23 Test Time: 22:02:08 Pat Name: EDGAR DE LOS SANTOS Department: Room: 125 A Gender: M Slope Runner: DOTTY : 1970 Requested By: CAMILA ARIAS Order Number: [id number] Reading MD: Jaspreet Sandhu Measurements Intervals [place] Rate: 83 P: 76 HI: 162 QRS: 93 QRSD: 82 T: 19 QT: 360 QTc: 429 Interpretive Statements SINUS RHYTHM LEFT ATRIAL ABNORMALITY RIGHTWARD AXIS T ABNORMALITY IN ANTERIOR LEADS ABNORMAL ECG RI6.02 No previous ECG available for comparison Electronically Signed On 07-24-2021 15:57:23 CDT by Jaspreet Sandhu
== END 2021-07-24 11:38 | disposition left against medical advice (07) | DRG 91 ==
LOC: EDBD 19:29 → ER 19:29 → MERGE 07-24 01:16 → 1 SOUTH 07-24 01:16
PROVIDERS: ADMIT Hospitalist; ATTEND Hospitalist
DX: G92.8 Other toxic encephalopathy (principal); K85.90 Acute pancreatitis without necrosis or infection, unspecified; F10.988 Alcohol use, unspecified with other alcohol-induced disorder; J98.11 Atelectasis; E86.0 Dehydration; J44.9 Chronic obstructive pulmonary disease, unspecified; N28.9 Disorder of kidney and ureter, unspecified; Z87.891 Personal history of nicotine dependence; Z53.29 Procedure and treatment not carried out because of patient's decision for other reasons; Z20.822 Contact with and (suspected) exposure to COVID-19
CPT/HCPCS: 36415; 70450; 71045; 80053; 80307; 80329; 81001; 82140; 82553; 83690; 83735; 84484; 85007; 85025; 87426; 93005; 94640; 96361; 96374; 96375; G0480; J1885; J2310; J3010; J3490; U0003; 99285-25; J7030

== ENCOUNTER 2021-08-24 09:40 | Emergency (ER) | payer MEDICARE, MEDICAID ==
[~2021-08-24] VITALS: Ht 162.6 cm; Wt 75.0 kg
--- NOTE | 2021-08-24 09:54 | PHYS DOC ---
Past History Past Medical History: COPD Additional Past Medical Histor: CHRONIC NECK PAIN Past Surgical History: Other Additional Past Surgical Histo: UNKNOWN SURGICAL HX Smoking: Cigarettes Alcohol Use: None Drug Use: None General Adult EDM: Chief Complaint: FOOT INJURY PAIN HPI: HPI: Patient is a 51-year-old male coming in via private vehicle for right foot pain and swelling. Patient states he had a mechanical fall about 1 hour prior to arrival. Denies any head injuries or loss of consciousness. Patient denies any prior significant injuries or surgeries to his right foot before. Next his right foot inverted. Denies any use of blood thinners. Review of Systems: Review of Systems: All other systems within normal limits except for as noted in the HPI Current Medications: Current Meds: Current Medications Medications (Trade) Dose Ordered Sig/Mitzy Start Time Stop Time Status Last Admin Dose Admin Acetaminophen/ Hydrocodone Bitart (Lortab 5/325) 1 tab 1X ONCE 08/24/21 10:00 08/24/21 10:01 UNV Allergies: Allergies: Allergies Coded Allergies Type Severity Reaction Last Updated Verified No Known Drug Allergies 08/06/20 No Physical Exam: PE: Constitutional: Well developed, well nourished, no acute distress, non-toxic appearance. [] HENT: Normocephalic, atraumatic, bilateral external ears normal, nose normal. [] Eyes: PERRLA, conjunctiva normal, no discharge. [] Neck: No rigidity, supple, no stridor. [] Cardiovascular: Regular rate and rhythm, brisk cap refill [] Lungs & Thorax: Non labored symmetric respirations, no tachypnea or respiratory distress [] Abdomen: Soft, nondistended. Skin: Warm, dry, no erythema, no rash. [] Back: Unremarkable Extremities: No deformities, range of motion grossly intact, no lower extremity edema. Swelling and tenderness to dorsum of right foot [] Neurologic: Alert and oriented X 3, no focal deficits noted. [] Psychologic: Affect normal, judgement normal, mood normal. [] EKG: EKG: [] Sinus rhythm, heart rate 70, right axis deviation, no ST elevation or depression Radiology/Procedures: Radiology/Procedures: [address] [address] IMAGING REPORT Signed PATIENT: EDGAR DE LOS SANTOS ACCOUNT: [id number] : 1970 LOCATION: ER AGE: 51 SEX: M EXAM STATUS: REG ER ORD. PHYSICIAN: FRANCO MARTINEZ MD REASON: fall, pain PROCEDURE: FOOT RIGHT 3V XR FOOT_RIGHT 3 VIEWS 08/24/2021 9:58 AM INDICATION: Fall, pain COMPARISON: None available. TECHNIQUE: 3 views of the right foot are provided. FINDINGS/ IMPRESSION: There is dislocation of the first metatarsophalangeal joint with widening of the joint space and lateral dislocation of the proximal phalanx in relation to the head of the first metatarsal. There is a minimally displaced, comminuted fracture of the base of the first metatarsal with intra-articular extension to the tarsometatarsal joint. Subtle cortical angulation of the base of the second metatarsal may reflect a nondisplaced fracture. Bone mineralization is within normal limits. Regional soft tissues are within normal limits. There is no soft tissue gas or osseous erosion. No radiopaque foreign body. Electronically signed by: Corrine Amaya MD (08/24/2021 10:25 AM) [id number] DICTATED AND SIGNED BY: CORRINE AMAYA MD DATE: 08/24/21 1021 CC: DAYAMI DANIELS; FRANCO MARTINEZ MD ~MTH0 [address] [place] [address] IMAGING REPORT Signed PATIENT: EDGAR DE LOS SANTOS ACCOUNT: [id number] : 1970 LOCATION: ER AGE: 51 SEX: M EXAM STATUS: REG ER ORD. PHYSICIAN: FRANCO MARTINEZ MD REASON: dislocation PROCEDURE: FOOT RIGHT 2V EXAM: Right foot, 2 views. HISTORY: Dislocation. COMPARISON: 08/24/2021 FINDINGS: 2 views of the right foot are obtained. There has been relocation of the first metatarsal phalangeal joint. There is persistent joint space widening likely due to a joint effusion or slight subluxation. There is a mildly displaced comminuted fracture at the base of the first metatarsal. There is degenerative spurring involving the first metatarsal head. There is slight cortical angulation of the medial base of the second metatarsal. There is dorsal forefoot soft tissue swelling. IMPRESSION: 1. Closed reduction of the first metatarsal phalangeal joint. There is slight persistent joint space widening. 2. Comminuted fracture at the base of the first metatarsal. 3. Slight angulation of the cortex of the base of the second metatarsal, physiologic or due to a nondisplaced fracture. 4. Dorsal forefoot soft tissue swelling. Electronically signed by: Peggy Aguilar MD (08/24/2021 11:37 AM) [id number] DICTATED AND SIGNED BY: PEGGY AGUILAR MD DATE: 08/24/21 1135 CC: DAYAMI DANIELS; FRACNO MARTINEZ MD ~MTH0 0 [] Impressions: Dr. Ku consulted for surgical management of first metatarsal fracture, will take to the OR at [place] this afternoon. Patient transported via EMS Closed reduction of right first metatarsal phalangeal dislocation performed in emergency department without complication, splint placed after for support. Heart Score: C/O Chest Pain: No Risk Factors: Risk Factors: DM, Current or recent (<one month) smoker, HTN, HLP, family history of CAD, obesity. Risk Scores: Score 0 - 3: 2.5% MACE over next 6 weeks - Discharge Home Score 4 - 6: 20.3% MACE over next 6 weeks - Admit for Clinical Observation Score 7 - 10: 72.7% MACE over next 6 weeks - Early Invasive Strategies Course & Med Decision Making: Course & Med Decision Making Pertinent Labs and Imaging studies reviewed. (See chart for details) Patient underwent closed reduction emergency department of metatarsophalangeal joint, transported via EMS to [place] for surgery today with Dr. Ku. Admit to hospitalist, Dr. Moreno accepts patient care. Patient started on BiPAP in emergency department for hypercapnia while pending transfer [] Dragon Disclaimer: Jj Disclaimer: This electronic medical record was generated, in whole or in part, using a voice recognition dictation system. Departure Departure: Impression: Primary Impression: Dislocation, metatarsophalangeal Additional Impressions: Fracture of metatarsal of right foot, closed Hypercapnia Disposition: 02 SHORT TERM HOSPITAL Condition: STABLE Referrals: DAYAMI DANIELS (PCP) FRANCO MARTINEZ MD Aug 24, 2021 09:54
[2021-08-24] MEDS ORDERED: HYDROcodone/APAP 5/325MG 1 TAB TABLET PO ONE (10:00)
[2021-08-24] MEDS ORDERED: KETOROLAC 60 MG/2 ML VIAL. IM ONE (10:15)
[2021-08-24] MEDS ORDERED: oxyCODONE/APAP 10/325 1 TAB TABLET PO ONE (10:15)
--- NOTE | 2021-08-24 10:28 | RAD ---
XR FOOT_RIGHT 3 VIEWS 08/24/2021 9:58 AM INDICATION: Fall, pain COMPARISON: None available. TECHNIQUE: 3 views of the right foot are provided. FINDINGS/ IMPRESSION: There is dislocation of the first metatarsophalangeal joint with widening of the joint space and late ral dislocation of the proximal phalanx in relation to the head of the first metatarsal. There is a minimally displaced, comminuted fracture of the base of the first metatarsal with intra-ar ticular extension to the tarsometatarsal joint. Subtle cortical angulation of the base of the second metatarsal may reflect a nondisplaced fracture. Bone mineralization is within normal limits. Regional soft tissues are within normal limits. There is no soft tissue gas or osseous erosion. No radiopaque foreign body. Electronically signed by: Sarai Ventura MD (08/24/2021 10:25 AM) [id number]
--- NOTE | 2021-08-24 11:40 | RAD ---
EXAM: Right foot, 2 views. HISTORY: Dislocation. COMPARISON: 08/24/2021 FINDINGS: 2 views of the right foot are obtained. There has been relocation of the first metatarsal p halangeal joint. There is persistent joint space widening likely due to a joint effusion or slight alvarenga bluxation. There is a mildly displaced comminuted fracture at the base of the first metatarsal. There is degenerative spurring involving the first metatarsal head. There is slight cortical angulation of the medial base of the second metatarsal. There is dorsal forefoot soft tissue swelling. IMPRESSION: 1. Closed reduction of the first metatarsal phalangeal joint. There is slight persistent joint space widening. 2. Comminuted fracture at the base of the first metatarsal. 3. Slight angulation of the cortex of the base of the second metatarsal, physiologic or due to a nond isplaced fracture. 4. Dorsal forefoot soft tissue swelling. Electronically signed by: Peggy San MD (08/24/2021 11:37 AM) [id number]
[2021-08-24 12:19] LABS: BASO % 0 % (0-3); EOS # 0.1 x10^3/uL (0.0-0.7); EOS % 2 % (0-3); HEMATOCRIT 53.2 % (39.0-53.0); HEMOGLOBIN 17.1 g/dL (13.0-17.5); LYMPH # 0.9 x10^3/uL (1.0-4.8); LYMPH % 13 % (24-48); MEAN CORPUSCULAR HEMOGLOBIN 34 pg (25-35); MEAN CORPUSCULAR HGB CONC 32 g/dL (31-37); MEAN CORPUSCULAR VOLUME 105 fL (79-100); MONO # 0.4 x10^3/uL (0.0-1.1); MONO % 6 % (0-9); NEUT # 5.5 x10^3uL (1.8-7.7); NEUT % 79 % (31-73); PLATELET COUNT 154 x10^3/uL (140-400); RED BLOOD COUNT 5.07 x10^6/uL (4.30-5.70); RED CELL DISTRIBUTION WIDTH 14.4 % (11.5-14.5); WHITE BLOOD COUNT 6.9 x10^3/uL (4.0-11.0)
[2021-08-24 12:26] LABS: CALCIUM 8.8 mg/dL (8.5-10.1); CREATININE 1.1 mg/dL (0.7-1.3); GFR 70.3; POTASSIUM 4.1 mmol/L (3.5-5.1)
[2021-08-24 12:38] LABS: ALBUMIN 3.5 g/dL (3.4-5.0); TOTAL BILIRUBIN 0.5 mg/dL (0.2-1.0); TOTAL PROTEIN 6.9 g/dL (6.4-8.2)
[2021-08-24 13:25] VITALS: BP 16/65
--- NOTE | 2021-08-24 15:01 | PDOC2 ---
CONSULT DOS: DATE: 08/24/21 TIME: 15:01 Reason for Consult: R foot swelling and pain in the setting of a Lisfranc fracture, comminuted first metatarsal base and first metatarsal shortening. Source: Patient Problem List Problems Medical Problems: (1) Dislocation, metatarsophalangeal Status: Acute (2) Fracture of metatarsal of right foot, closed Status: Acute (3) Hypercapnia Status: Acute History of Present Illness Patient presented to ED after a mechanical fall at home. Patient lost his footing while getting off a chair and landed on the right foot. Patient otherwise denied injury or pain elsewhere. Subsequent evaluation at the ED remarked a comminuted first metatarsal base fracture across the Lisfranc joint with significant first metatarsal shortening. Close reduction was attempted and post reduction x-ray remarked improved anatomical alignment however persistent first metatarsal shortening. Patient was then transferred from [facility] to [place] for further surgical management. At bedside, patient relates upwards to 7 out of 10 throbbing sharp pain across the foot. He denied any numbness or tingling sensation to the lower extremity. Patient denied prior history of nonunion or delayed union. However, patient is a 1.5 PPD smoker in the last 2 years and prior to that 2 PPD for 30 years. Patient lives with son in a single-story home. Patient also has a family mother who lives with them who may help patient during the foot fracture recovery. Per chart review, patient has a history of substance abuse and alcohol abuse. He is on chronic oxycodone for? He is on 1.5L oxygen at baseline. Current Medications Current Medications Acetaminophen/ Hydrocodone Bitart (Lortab 5/325) 1 tab 1X ONCE PO ; Start 08/24/21 at 10:00; Stop 08/24/21 at 10:07; Status DC Ketorolac Tromethamine (Toradol Im) 60 mg 1X ONCE IM Last administered on 08/24/21at 10:15; Start 08/24/21 at 10:15; Stop 08/24/21 at 10:24; Status DC Oxycodone/ Acetaminophen (Percocet 10/325) 1 tab 1X ONCE PO Last administered on 08/24/21at 10:14; Start 08/24/21 at 10:15; Stop 08/24/21 at 10:24; Status DC Fentanyl Citrate (Fentanyl 2ml Vial) 50 mcg PRN Q1HR PRN IVP PAIN; Start 08/24/21 at 12:45; Stop 08/24/21 at 13:53; Status DC Active Scripts Active Reported Zoloft (Sertraline Hcl) 100 Mg Tablet 100 Mg PO DAILY LAST DOSE GIVEN: DATE: TIME: NEXT DOSE DUE: DATE: TIME: Nabumetone 750 Mg Tablet 750 Mg PO BID PRN LAST DOSE GIVEN: DATE: TIME: NEXT DOSE DUE: DATE: TIME: Atorvastatin Calcium 20 Mg Tablet 20 Mg PO QHS LAST DOSE GIVEN: DATE: TIME: NEXT DOSE DUE: DATE: TIME: Trazodone Hcl 100 Mg Tablet 0.5-1 Tab PO PRN QHS PRN LAST DOSE GIVEN: DATE: TIME: NEXT DOSE DUE: DATE: TIME: Oxycontin (Oxycodone HCl) 80 Mg Tab.er.12h 160 Mg PO BID LAST DOSE GIVEN: DATE: TIME: NEXT DOSE DUE: DATE: TIME: Roxicodone (Oxycodone Hcl) 30 Mg Tablet 1-2 Tab PO PRN Q4HRS PRN LAST DOSE GIVEN: DATE: TIME: NEXT DOSE DUE: DATE: TIME: Abilify (Aripiprazole) 5 Mg Tablet 5 Mg PO DAILY LAST DOSE GIVEN: DATE: TIME: NEXT DOSE DUE: DATE: TIME: Potassium Chloride (Potassium Chloride) 20 Meq Tablet.er 20 Meq PO DAILY LAST DOSE GIVEN: DATE: TIME: NEXT DOSE DUE: DATE: TIME: Keppra (Levetiracetam) 1,000 Mg Tablet 1,000 Mg PO BID LAST DOSE GIVEN: DATE: TIME: NEXT DOSE DUE: DATE: TIME: Allergies: Coded Allergies: No Known Drug Allergies (Unverified , 08/06/20) Review of System CONSTITUTIONAL: No fever. No chills. No dizziness. No weakness. CARDIOVASCULAR: No chest pain. No palpitations. No lower extremity edema. RESPIRATORY: No shortness of breath, cough, pain with respiration. No hemoptysis. No dyspnea. GASTROINTESTINAL: Normal appetite. No nausea, vomiting, diarrhea. GENITOURINARY: No frequency, urgency, nocturia. No hematuria or dysuria. MUSCULOSKELETAL: Refer to HPI INTEGUMENTARY: No abrasions, lymphangitis. NEUROLOGIC: No numbness or tingling of the extremities. No weakness. PSYCHIATRIC: No confusion. ENDOCRINE: No fatigue. No weakness. HEMATOLOGICAL: No bleeding. No petechiae. No bruising. ALLERGIES: No asthma. No urticaria Physical Exam General: AOx3, distressed Dermatology: -No fracture blisters -No open lesion -Clubbing is to fingers 1 through 10 -skin line is minimally diminished to the foot Vascular: -DP/PT are faintly palpable due to swelling and baseline PAD, in comparison to the contralateral side it is also weak -CFT less than 3 seconds x 5 -There are no significant ecchymosis either dorsally or plantarly to the midfoot Neurology: -Light touch sensation intact to digits 1 through 5 Musculoskeletal: -TTP at dorsal and plantar and medial first TMT -Able to move digits 1 through 5 -Able to move ankle -Calf is soft and nontender -Foot compartments are supple however swollen without remarkable paresthesia VITALS Vital Signs Date Time Temp Pulse Resp B/P (MAP) Pulse Ox O2 Delivery O2 Flow Rate FiO2 08/24/21 13:25 71 24 16/65 (49) 93 3.0 08/24/21 12:55 BiPAP/CPAP 08/24/21 09:45 98.5 Labs Laboratory Tests Test 08/24/21 11:40 08/24/21 12:07 White Blood Count 6.9 x10^3/uL (4.0-11.0) Red Blood Count 5.07 x10^6/uL (4.30-5.70) Hemoglobin 17.1 g/dL (13.0-17.5) Hematocrit 53.2 % (39.0-53.0) Mean Corpuscular Volume 105 fL (79-100) Mean Corpuscular Hemoglobin 34 pg (25-35) Mean Corpuscular Hemoglobin Concent 32 g/dL (31-37) Red Cell Distribution Width 14.4 % (11.5-14.5) Platelet Count 154 x10^3/uL (140-400) Neutrophils (%) (Auto) 79 % (31-73) Lymphocytes (%) (Auto) 13 % (24-48) Monocytes (%) (Auto) 6 % (0-9) Eosinophils (%) (Auto) 2 % (0-3) Basophils (%) (Auto) 0 % (0-3) Neutrophils # (Auto) 5.5 x10^3uL (1.8-7.7) Lymphocytes # (Auto) 0.9 x10^3/uL (1.0-4.8) Monocytes # (Auto) 0.4 x10^3/uL (0.0-1.1) Eosinophils # (Auto) 0.1 x10^3/uL (0.0-0.7) Basophils # (Auto) 0.0 x10^3/uL (0.0-0.2) Bedside Venous pH 7.24 (7.32-7.42) Bedside Venous pCO2 99 mmHg (41-51) Bedside Venous pO2 49 mmHg (20-40) Venous Blood HCO3 43 mmol/L (24-28) POC Venous O2 Saturation (Ki) 74 % Bedside FiO2 32 Sodium Level 141 mmol/L (136-145) Potassium Level 4.1 mmol/L (3.5-5.1) Chloride Level 98 mmol/L (98-107) Carbon Dioxide Level 41 mmol/L (21-32) Anion Gap 2 (6-14) Blood Urea Nitrogen 9 mg/dL (8-26) Creatinine 1.1 mg/dL (0.7-1.3) Estimated GFR (Cockcroft-Gault) 70.3 BUN/Creatinine Ratio 8 (6-20) Glucose Level 109 mg/dL (70-99) Calcium Level 8.8 mg/dL (8.5-10.1) Total Bilirubin 0.5 mg/dL (0.2-1.0) Aspartate Amino Transf (AST/SGOT) 16 U/L (15-37) Alanine Aminotransferase (ALT/SGPT) 19 U/L (16-63) Alkaline Phosphatase 127 U/L (46-116) Total Protein 6.9 g/dL (6.4-8.2) Albumin 3.5 g/dL (3.4-5.0) Albumin/Globulin Ratio 1.0 (1.0-1.7) Ethyl Alcohol Level < 10 mg/dL (0-10) SARS-CoV-2 Antigen (Rapid) Negative (NEGATIVE) Assessment/Plan First TMT subluxation, comminuted fracture to the metatarsal base with severe shortening, right -Explained clinical and x-ray findings. The post reduction x-ray still remarked significant shortening and malalignment across the first TMT. I explained the indication and benefits of closed reduction with external fixation to maintain the length and first metatarsal base alignment reduction to further aid the second stage first TMT fusion. If we did not fix or reduce the fracture today or soon, the shortening would pose significant challenges with second stage fusion including second metatarsalgia, forefoot varus, the need for bone graft, delayed union or nonunion. Patient consented for the procedure including closed reduction, external fixator placement for fracture reduction -Remain nonweightbearing -N.p.o. -Pending Covid swab testing -Pending PCP clearance for surgery Dispo: Given the chronic oxycodone use, history of substance abuse, lack of home support, patient may benefit from post surgery admission and later SNF placement. We will also monitor for signs of compartment syndromes. Informed Consent Discussion: I have discussed the purpose, risks, benefits, and alternatives to the procedure and plan of care including potential side effects and complications, both of which may be severe and require additional surgery and/or procedures to treat this with the patient/guardian(s). We discussed the risks and benefits of alternative treatment options and the likelihood of achieving the desired outcome with surgery. Procedure specific discussion is documented below. The risks, benefits and alternatives of the proposed surgery were discussed with the patient, including the option of further non-operative treatment. The possibility of perioperative complications leading to disability and were explained. Patient understands the risks of surgery include but are not limited to failure of the procedure, delayed or non-healing wound, bleeding, infection, venous thrombus/embolus, nerve, vessel, tendon and bone damage, the complications of anesthesia, reaction to sutures or other implanted material, stiffness, chronic pain/swelling, malunion/nonunion, the need for other operations and future revision surgery. No guarantees were given or implied. The patient's questions were answered in depth and patient is willing to proceed. KENDALL DELUCA DPM Aug 24, 2021 15:01
--- NOTE | 2021-08-25 04:15 | EKG ---
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
== END 2021-08-24 13:45 | disposition short-term general hospital (02) ==
LOC: ER 09:40
DX: S92.311A Displaced fracture of first metatarsal bone, right foot, initial encounter for closed fracture (principal); J44.9 Chronic obstructive pulmonary disease, unspecified; F17.210 Nicotine dependence, cigarettes, uncomplicated; Z20.822 Contact with and (suspected) exposure to COVID-19; W18.39XA Other fall on same level, initial encounter; Y93.89 Activity, other specified; Y92.89 Other specified places as the place of occurrence of the external cause; Y99.8 Other external cause status
CPT/HCPCS: 36415; 36600; 73620; 73630; 80053; 82803; 85025; 87426; 93005; 94660; 96372; 99285; C9803; G0480; J1885; U0003

== ENCOUNTER 2021-10-09 12:59 | Emergency (ER) | payer MEDICARE, MEDICAID ==
[~2021-10-09] VITALS: Ht 162.6 cm; Wt 75.0 kg
[2021-10-09] MEDS ORDERED: ALBUTEROL SULFATE 8GM INHALER. INH ONE (14:15)
--- NOTE | 2021-10-09 14:24 | PHYS DOC ---
Past History Past Medical History: COPD Additional Past Medical Histor: CHRONIC NECK PAIN (SHYANNE GUPTA DO) Past Surgical History: Cervical Fusion, Cholecystectomy, Other (SHYANNE GUPTA DO) Smoking: Cigarettes Alcohol Use: Sober Drug Use: None (SHYANNE GUPTA DO) General Adult EDM: Chief Complaint: SHORTNESS OF BREATH HPI: HPI: 51-year-old male presents with shortness of breath, body aches, fatigue. Patient has a history of COPD and uses breathing treatments daily. He tells me he has been taking his medications. He states that his shortness of breath has been coming and going over the last several days. He was feeling worse today. His home health nurse came and thought he should go to the emergency room. Patient is not vaccinated against COVID-19. He has not had COVID-19 as far as he knows. He has surgery on his right foot about 6 weeks ago. He is unsure if he is on an anticoagulant. (SHYANNE GUPTA DO) Review of Systems: Review of Systems: Constitutional: Denies fever or chills Eyes: Denies change in visual acuity HENT: Denies nasal congestion or sore throat Respiratory: Denies cough or shortness of breath Cardiovascular: Denies chest pain or edema GI: Denies abdominal pain, nausea, vomiting, bloody stools or diarrhea : Denies dysuria Musculoskeletal: Denies back pain or joint pain Integument: Denies rash Neurologic: Denies headache, focal weakness or sensory changes Endocrine: Denies polyuria or polydipsia Lymphatic: Denies swollen glands Psychiatric: Denies depression or anxiety (SHYANNE GUPTA DO) Current Medications: Current Meds: Current Medications Medications (Trade) Dose Ordered Sig/Mitzy Start Time Stop Time Status Last Admin Dose Admin Albuterol Sulfate (Ventolin Hfa Inhaler) 1 puff 1X ONCE 10/09/21 14:15 10/09/21 14:16 UNV (SHYANNE GUPTA DO) Allergies: Allergies: Allergies Coded Allergies Type Severity Reaction Last Updated Verified No Known Drug Allergies 08/06/20 No (SHYANNE GUPTA DO) Physical Exam: PE: Constitutional: Well developed, well nourished, mild acute distress, non-toxic appearance. [] HENT: Normocephalic, atraumatic, bilateral external ears normal, oropharynx moist, no oral exudates, nose normal. [] Eyes: PERRLA, EOMI, conjunctiva normal, no discharge. [] Neck: Normal range of motion, no tenderness, supple, no stridor. [] Cardiovascular: Heart rate 85, regular rhythm, no murmur [] Lungs & Thorax: Bilateral breath sounds diminished with expiratory wheezing [] Abdomen: Bowel sounds normal, soft, no tenderness, no masses, no pulsatile masses. [] Skin: Warm, dry, no erythema, no rash. [] Back: No tenderness, no CVA tenderness. [] Extremities: Right foot in splint and Kristopher wrap [] Neurologic: Alert and oriented X 3, normal motor function, normal sensory function, no focal deficits noted. [] Psychologic: Affect normal, judgement normal, mood normal. [] (SHYANNE GUPTA DO) EKG: EKG: [] (SHYANNE GUPTA DO) Radiology/Procedures: Radiology/Procedures: [] (SHYANNE GUPTA DO) Heart Score: C/O Chest Pain: N/A Risk Factors: Risk Factors: DM, Current or recent (<one month) smoker, HTN, HLP, family history of CAD, obesity. Risk Scores: Score 0 - 3: 2.5% MACE over next 6 weeks - Discharge Home Score 4 - 6: 20.3% MACE over next 6 weeks - Admit for Clinical Observation Score 7 - 10: 72.7% MACE over next 6 weeks - Early Invasive Strategies (SHYANNE GUPTA DO) Course & Med Decision Making: Course & Med Decision Making Pertinent Labs and Imaging studies reviewed. (See chart for details) The patient's venous gas shows CO2 retention of 88. We have placed the patient on supplemental oxygen. His oxygen saturation is adequate but he is still retaining. We did place the patient on BiPAP which allowed him to decrease his CO2 some but did decrease the excess oxygen demand so he was more efficiently utilizing respirations. Patient wants to go home. I talked with him and convinced him to stay for his CT angiogram. I stressed to him that in his condition he can get much worse and . He was given 10 of Decadron and albuterol MDI. The patient CTA was negative for lens dotter. It does show interstitial infiltrate. I am signing the patient out to my colleague Dr. Oglesby at 1800. [] (SHYANNE GUPTA DO) Course & Med Decision Making Pt. demanding discharge. Begged pt. to reconsider his decision. Pt. exhibit UCAR capacity. Note dictation loss- [id number] (MICHELLE OGLESBY MD) Jj Disclaimer: Jj Disclaimer: This electronic medical record was generated, in whole or in part, using a voice recognition dictation system. (SHYANNE GUPTA DO) Departure Departure: Impression: Primary Impression: COPD exacerbation Referrals: DAYAMI DANIELS (PCP) Jj Disclaimer This chart was dictated in whole or in part using Voice Recognition software in a busy, high-work load, and often noisy Emergency Department environment. It may contain unintended and wholly unrecognized errors or omissions. (MICHELLE OGLESBY MD) SHYANNE GUPTA DO Oct 09, 2021 14:24 MICHELLE OGLESBY MD Oct 10, 2021 00:54
[2021-10-09 14:45] LABS: BASO # 0.1 x10^3/uL (0.0-0.2); BASO % 1 % (0-3); EOS # 0.1 x10^3/uL (0.0-0.7); EOS % 1 % (0-3); HEMATOCRIT 48.6 % (39.0-53.0); HEMOGLOBIN 15.5 g/dL (13.0-17.5); LYMPH # 1.4 x10^3/uL (1.0-4.8); LYMPH % 18 % (24-48); MEAN CORPUSCULAR HEMOGLOBIN 35 pg (25-35); MEAN CORPUSCULAR HGB CONC 32 g/dL (31-37); MEAN CORPUSCULAR VOLUME 109 fL (79-100); MONO # 0.5 x10^3/uL (0.0-1.1); MONO % 6 % (0-9); NEUT # 5.9 x10^3uL (1.8-7.7); NEUT % 74 % (31-73); PLATELET COUNT 264 x10^3/uL (140-400); RED BLOOD COUNT 4.47 x10^6/uL (4.30-5.70); RED CELL DISTRIBUTION WIDTH 18.1 % (11.5-14.5)
--- NOTE | 2021-10-09 14:51 | RAD ---
EXAM: Chest, single view. HISTORY: Shortness of breath. COMPARISON: 04/15/2021 FINDINGS: A frontal view of the chest is obtained. There has been interval increase in interstitial o pacity. There is no consolidation, pleural effusion or pneumothorax. There are calcified granulomas. There is a prominent cardiac silhouette. There is incidental cervical spinal fusion instrumentation. IMPRESSION: Diffuse increased interstitial opacity likely due to interstitial infiltrate. There is no consolidated pneumonia. Electronically signed by: Peggy San MD (10/09/2021 2:49 PM) [id number]
[2021-10-09] MEDS ORDERED: IOHEXOL 350 MG/ML 100 ML VIAL. IV ONE (15:00)
[2021-10-09] MEDS ORDERED: DEXAMETHASONE SOD PHOS 10 MG/ML VIAL. IV ONE (15:00)
[2021-10-09 15:02] LABS: CALCIUM 8.9 mg/dL (8.5-10.1); GFR 78.5; POTASSIUM 4.3 mmol/L (3.5-5.1)
[2021-10-09 15:09] LABS: ALBUMIN 3.4 g/dL (3.4-5.0); ALBUMIN/GLOBULIN RATIO 1.1 (1.0-1.7); TOTAL BILIRUBIN 0.6 mg/dL (0.2-1.0); TOTAL PROTEIN 6.6 g/dL (6.4-8.2)
[2021-10-09 15:13] LABS: INFLUENZA A PATIENT NEGATIVE (NEGATIVE); INFLUENZA B PATIENT NEGATIVE (NEGATIVE)
[2021-10-09] MEDS ORDERED: NICOTINE 21MG PATCH. TD ONE (16:00)
[2021-10-09] MEDS ORDERED: ONDANSETRON PF 4 MG/2 ML VIAL. IVP PRN (17:45)
[2021-10-09 18:16] VITALS: BP 129/69
--- NOTE | 2021-10-09 18:40 | RAD ---
CT arteriogram of the chest. HISTORY: Short of breath, abnormal chest x-ray CT arteriogram of the chest was done using 100 and now Omnipaque 350 contrast. Thyroid is homogeneous . There is atherosclerotic change in the aortic arch. There is no mediastinal adenopathy. There is no pleural effusion. Upper aspect of liver and spleen are unremarkable. Adrenal glands are normal. Ther e is peribronchial thickening. Right lung is free of confluent infiltrates. There is atelectasis with possible infiltrate in the lingula. There is a calcified granuloma in the left lower lobe. There are calcified nodes at the left hilum. This study is negative for a pulmonary embolus. IMPRESSION: 1. Focal atelectasis or consolidation from pneumonia in the lingula. 2. Bilateral peribronchial thickening. 3. No other acute infiltrates. 4. Negative for a pulmonary embolus. PQRS Compliance Statement: One or more of the following individualized dose reduction techniques were utilized for this examinat ion: 1. Automated exposure control 2. Adjustment of the mA and/or kV according to patient size 3. Use of iterative reconstruction technique Electronically signed by: Arun De Leon MD (10/09/2021 6:38 PM) [facility]
[2021-10-09] MEDS ORDERED: IPRATRPIUM/ALBUTEROL 0.5/2.5MG 3 ML NEBU. NEB SCH (20:00)
[2021-10-09] MEDS ORDERED: MORPHINE SULFATE 10 MG/ML SYRINGE. SQ ONE (22:30)
== END 2021-10-10 00:34 | disposition admitted as inpatient to this hospital (09) ==
LOC: ER 12:59 → UNDOADMIN 17:35 → ER HOLD 17:35 → ER 10-10 00:34
DX: J44.1 Chronic obstructive pulmonary disease with (acute) exacerbation (principal); F17.210 Nicotine dependence, cigarettes, uncomplicated; Z20.822 Contact with and (suspected) exposure to COVID-19
CPT/HCPCS: 71045; 71275; 80053; 82803; 84484; 85025; 87040; 87428; 94640; 94660; 96372; 96374; 96375; 99285; J1100; J2060; J2270; Q9967; U0003; 94664

== ENCOUNTER → 2021-12-20 | Outpatient (CLI) | payer MEDICARE, MEDICAID ==
--- NOTE | 2021-12-22 17:28 | RAD ---
Right foot 3 views: Reason for examination: Right foot pain. Comparison is made to previous study dated 08/24/2021. There are lytic lesions in the first metatarsal bone and medial cuneiform bone from previous internal fixation. There appears to be a nonhealed fracture at the base of the first metatarsal bone with mil d angulation and displacement and intra-articular extension. No other site of fracture or dislocation is seen. The bone density is normal. No abnormal periosteal reaction is present. IMPRESSION: Nonhealed fracture involving the base of the first metatarsal bone with mild angulation and displacem ent and intra-articular extension. Electronically signed by: Kaia Prince MD (12/22/2021 5:26 PM) [facility]
== END ==
LOC: RAD 13:53
PROVIDERS: ATTEND Podiatrist
DX: S92.351A Displaced fracture of fifth metatarsal bone, right foot, initial encounter for closed fracture (principal); X58.XXXA Exposure to other specified factors, initial encounter; Y93.89 Activity, other specified; Y92.89 Other specified places as the place of occurrence of the external cause; Y99.8 Other external cause status
CPT/HCPCS: 73630